=== PATIENT | male | born 1970 | race Caucasian/White ===

== ENCOUNTER 2021-11-23 03:54 | Emergency (ER) | payer MEDICAID, SELFPAY ==
[2021-11-23] VITALS (23 sets, daily range): BP systolic 122–136; BP diastolic 88–98; PULSE 90–113; RESP 18–32; TEMP 36.4; O2SAT 94–99
--- NOTE | ~2021-11-23 | XR_ITS ---
EXAMINATION: XR chest 1V portable DATE: 11/23/2021 04:36 INDICATION: Possible aspiration TECHNIQUE: frontal view of the chest was obtained. COMPARISON: None FINDINGS: Subtle increased opacities at the bilateral lower lung zones with some bronchovascular crowding sugge sting this may be related to atelectasis although aspiration or pneumonia not excludable. No pleural effusion or pneumothorax. Cardiomediastinal silhouette is normal. Multiple old right-sided rib fractu res. IMPRESSION: 1. Subtle bibasilar opacities and favor atelectasis over differential includes aspiration or pneumoni a. Reviewed, dictated and finalized at location A. IMPRESSION: 1. Subtle bibasilar opacities and favor atelectasis over differential includes aspiration or pneumonia.
--- NOTE | 2021-11-23 03:57 | ED.GENADULT ---
HPI - General Adult General Chief complaint: Fall Stated complaint: FALL, LOW O2, ASPIRATION? History of Present Illness HPI narrative: 51-year-old male presenting to the emergency department from the commode from home for evaluation after a fall and suspected aspiration. Patient was found laying on the floor attempting to drink a bottle of tube feeding. Patient is nonverbal at baseline. During transportation patient did have rhonchi, did report he did have shortness of breath and did have an oxygen requirement per EMS. Upon arrival to the emergency department patient is saturating 98% and is in no distress. Related Data Home Medications Medication Instructions Recorded Confirmed Adult Aspirin 81 mg G-tube DAILY 11/23/21 11/23/21 Citroma 1.745 g G-tube PRN PRN Constipation 11/23/21 11/23/21 Fleet Enema 1 applic RECTAL PRN PRN 11/23/21 11/23/21 Constipation Milk of Magnesia 30 ml G-tube PRN PRN Constipation 11/23/21 11/23/21 amlodipine 10 mg G-tube DAILY 11/23/21 11/23/21 atorvastatin 80 mg G-tube HS 11/23/21 11/23/21 baclofen 5 mg G-tube TID 11/23/21 11/23/21 bisacodyl 1 mg RECTAL BID 11/23/21 11/23/21 clopidogrel 75 mg G-tube DAILY 11/23/21 11/23/21 famotidine 20 mg PO BID 11/23/21 11/23/21 haloperidol 1 mg G-tube PRN PRN Constipation 11/23/21 11/23/21 Allergies Allergy/AdvReac Type Severity Reaction Status Date / Time No Known Allergies Allergy Verified 11/23/21 04:11 Review of Systems Review of Systems: Patient is nonverbal ROS unobtainable: Yes unobtainable due to medical condition Exam Narrative: APPEARANCE: Well appearing, no pain, no distress, well-nourished. HEAD: normocephalic, atraumatic. EYES: PERRLA/EOMI, conjunctivae clear. NOSE: Normal no drainage NECK: Supple. No adenopathy, no masses. RESPIRATORY: Airway patent, respirations nonlabored. Rhonchi in lower lobes CARDIOVASCULAR: Regular rate and rhythm without murmurs rubs or gallops. ABDOMINAL: Soft, nontender, nondistended, normal bowel sounds MUSCULOSKELETAL: Moves all extremities. Strength/ROM intact, No edema, No calf tenderness. NEURO: Alert. Right-sided deficit, nonverbal. At his baseline per EMS SKIN: Warm, dry. Normal Color Course Course Emergency Course: Patient's lung sounds have cleared with coughing. Patient is 96 to 98% on room air. Patient acknowledges that he does feel improved. X-ray does show right lower lobe atelectasis versus infiltrate. Vital Signs Vital signs: Vital Signs Temperature 97.5 F L 11/23/21 03:53 Pulse Rate 113 H 11/23/21 03:53 Respiratory Rate 26 H 11/23/21 03:53 Blood Pressure 122/94 H 11/23/21 03:53 Pulse Oximetry 98 11/23/21 03:53 Oxygen Delivery Room Air 11/23/21 03:53 Temperature 97.5 F L 11/23/21 03:53 Pulse Rate 90 11/23/21 05:46 Respiratory Rate 22 H 11/23/21 05:46 Blood Pressure 136/88 11/23/21 05:46 Pulse Oximetry 97 11/23/21 05:46 Oxygen Delivery Room Air 11/23/21 03:53 Medical Decision Making Vital Signs Vital Signs: Vital Signs Temperature 97.5 F L 11/23/21 03:53 Pulse Rate 113 H 11/23/21 03:53 Respiratory Rate 26 H 11/23/21 03:53 Blood Pressure 122/94 H 11/23/21 03:53 Pulse Oximetry 98 11/23/21 03:53 Oxygen Delivery Room Air 11/23/21 03:53 Temperature 97.5 F L 11/23/21 03:53 Pulse Rate 90 11/23/21 05:46 Respiratory Rate 22 H 11/23/21 05:46 Blood Pressure 136/88 11/23/21 05:46 Pulse Oximetry 97 11/23/21 05:46 Oxygen Delivery Room Air 11/23/21 03:53 Lab Data Lab results reviewed: Yes I reviewed the patient's lab results. Result diagrams: 11/23/21 04:10 11/23/21 04:11 Labs: Lab Results 11/23/21 11/23/21 Range/Units 04:10 04:11 WBC 7.2 (4.5-10.0) K/mm3 RBC 4.05 L (4.6-6.20) M/mm3 Hgb 12.4 L (14.0-18.0) g/dL Hct 35.9 L (42.0-52.0) % MCV 88.6 (80-100) fl MCH 30.6 (26-34) pg MCHC 34.5 (32-36) g/dl RDW 16.2 H (11.5-14.5) % Plt Co
--- NOTE | 2021-11-23 04:04 | ECG_ITS ---
Measurements Intervals [place] Rate: 110 P: 58 [place]: 181 QRS: 55 QRSD: 102 T: 73 QT: 383 QTc: 519 Interpretive Statements SINUS TACHYCARDIA EARLY PRECORDIAL R/S TRANSITION NONSPECIFIC ST & T-WAVE ABNORMALITY- DIFFUSE LEADS BASELINE WANDER- I, II, AVR, AVL, AVF ABNORMAL ECG Electronically Signed On 11-23-2021 8:48:55 CDT by Edgar Foy D.O.
[2021-11-23] MEDS: ALBUTEROL SULFATE NEB 2.5 MG/3 ML INH 5 MG INHALATION (04:10)
[2021-11-23] MEDS: SODIUM CHLORIDE 0.9% IV 500 ML 999 ML IV CONT (04:12)
[2021-11-23 04:21] LABS: Basophils Percent Auto 0.1 % (0.2-1.2); Eosinophils Percent Auto 0.3 % (0-4.4); Hematocrit 35.9 % (42.0-52.0); Hemoglobin 12.4 g/dL (14.0-18.0); Immature Granulocyte Absolute 0.02 K/mm3 (0.00-0.031); Immature Granulocyte Percent A 0.3 % (0-0.5); Lymphocytes Absolute Auto 1.25 K/mm3 (0.9-3.2); Lymphocytes Percent Auto 17.3 % (18.3-44.2); Mean Corpuscular HGB Conc 34.5 g/dl (32-36); Mean Corpuscular Hemoglobin 30.6 pg (26-34); Mean Corpuscular Volume 88.6 fl (80-100); Mean Platelet Volume 10.2 fl (7.4-10.4); Monocytes Absolute Auto 0.5 K/mm3 (0.1-0.6); Monocytes Percent Auto 7.1 % (2.6-8.5); Neutrophils Absolute Auto 5.4 K/mm3 (1.3-6.7); Neutrophils Percent Auto 74.9 % (45.5-73.1); Platelet Count Result 252 k/mm3 (150-375); Red Blood Count 4.05 M/mm3 (4.6-6.20); Red Cell Distribution Width 16.2 % (11.5-14.5); White Blood Count 7.2 K/mm3 (4.5-10.0)
--- NOTE | 2021-11-23 04:25 | PCRCNOTE ---
Patient needs to produce a good cough, when asked if he is able, pt stated no.
[2021-11-23 04:28] LABS: Alanine Aminotransferase 31 U/L (6-50); Albumin Level 3.8 g/dL (3.5-5.1); Alkaline Phosphatase 85 U/L (38-126); Anion Gap 6 mmol/L (8-16); Aspartate Amino Transferase 33 U/L (17-59); Bilirubin,Total 0.8 mg/dL (0.2-1.3); Blood Urea Nitrogen 19 mg/dL (9-20); Calcium 9.3 mg/dL (8.4-10.2); Carbon Dioxide 26 mmol/L (22-30); Chloride 104 mmol/L (98-107); Estimated CRCL calculation 166 ml/min; Estimated Glomerular Filt Rate > 60; Glucose 181 mg/dL (65-110); Potassium 3.7 mmol/L (3.4-5.0); Sodium 136 mmol/L (137-145)
--- NOTE | 2021-11-23 07:16 | PC.NURSE ---
BSSR to Cat RN
== END 2021-11-23 07:30 | disposition home or self-care (01) ==
PROVIDERS: Emergency Provider Emergency Medicine; PCP Internal Medicine
DX: T17.928A Food in respiratory tract, part unspecified causing other injury, initial encounter (principal); I69.328 Other speech and language deficits following cerebral infarction; R00.0 Tachycardia, unspecified; R94.31 Abnormal electrocardiogram [ECG] [EKG]; W18.11XA Fall from or off toilet without subsequent striking against object, initial encounter; R91.8 Other nonspecific abnormal finding of lung field
CPT/HCPCS: 36415; 71045; 80053; 85025; 93005; 94640; 96360; 99283; J7040

== ENCOUNTER 2021-11-24 15:43 | Emergency (ER) | payer MEDICAID, SELFPAY ==
--- NOTE | ~2021-11-24 | XR_ITS ---
EXAM: XR G tube evaluation w imaging DATE: 11/24/2021 17:47 HISTORY: replaced g tube . COMPARISON: None available. FINDINGS: Contrast instilled via the G-tube fills the stomach and proximal duodenum. No extravasation . Bibasilar atelectasis/consolidation. Normal bowel gas pattern. No organomegaly. No abnormal abdomin al calcification. Regional bones and soft tissues normal for age. IMPRESSION: G-tube, in good position. Reviewed, dictated and finalized at location K. IMPRESSION: G-tube, in good position.
[2021-11-24 15:44] VITALS: BP 130/91; PULSE 98; RESP 18; TEMP 36.8; O2SAT 100
--- NOTE | 2021-11-24 17:33 | ED.GENADULT ---
HPI - General Adult General Chief complaint: Unspecified Stated complaint: TEAR IN GTUBE NEEDS REPLACED Time Seen by Provider: 11/24/21 16:22 Source: EMS and RN notes reviewed Mode of arrival: EMS Limitations: other (nonverbal from stroke) History of Present Illness HPI narrative: This is a 51 year old male nonverbal with history of CVA with right hemiplegia who presents from [facility] in [place] for g tube replacement. EMS states [facility] reports crack in patient's g tube so he needs replacement. Patient is unable to given additional history. Related Data Home Medications Medication Instructions Recorded Confirmed Adult Aspirin 81 mg G-tube DAILY 11/23/21 11/23/21 Citroma 1.745 g G-tube PRN PRN Constipation 11/23/21 11/23/21 Fleet Enema 1 applic RECTAL PRN PRN 11/23/21 11/23/21 Constipation Milk of Magnesia 30 ml G-tube PRN PRN Constipation 11/23/21 11/23/21 amlodipine 10 mg G-tube DAILY 11/23/21 11/23/21 atorvastatin 80 mg G-tube HS 11/23/21 11/23/21 baclofen 5 mg G-tube TID 11/23/21 11/23/21 bisacodyl 1 mg RECTAL BID 11/23/21 11/23/21 clopidogrel 75 mg G-tube DAILY 11/23/21 11/23/21 famotidine 20 mg PO BID 11/23/21 11/23/21 haloperidol 1 mg G-tube PRN PRN Constipation 11/23/21 11/23/21 Allergies Allergy/AdvReac Type Severity Reaction Status Date / Time No Known Allergies Allergy Verified 11/24/21 15:51 Review of Systems Review of Systems: ROS unobtainable: Yes unobtainable due to medical condition (nonverbal) PMFSH Past Medical History Medical History (Updated 11/24/21 @ 18:31 by Leena Crow MD) Aphasia CVA (cerebral vascular accident) History of gastrostomy tube placement Hyperlipidemia Right hemiplegia Social History Social History (Updated 11/24/21 @ 17:38 by Leena Crow MD) Smoking status: Unknown if ever smoked Exam Const: General: comfortable and no acute distress Nutritional Appearance: well nourished Orientation/consciousness: Other orientation findings (paient alert , aphasia, will shake head yes and know) Limitations: physical limitations HENMT: Head: normocephalic and atraumatic Mouth: Yes lip normal, Yes oropharynx normal and Yes moist mucous membranes Throat: posterior oropharynx normal Chest: Chest palpation & inspection: normal inspection of the chest Resp: Effort & Inspection: normal respiratory effort Auscultation: clear to auscultation bilaterally Cardio: Rate: regular rate Rhythm: regular rhythm GI: GI Palp: Yes Soft to palpation and No Tenderness to palpation present (GI) Auscultation: normal bowel sounds and other (gastrostomy tube in place, there is granulation tissue at site, tract,) Other: no surrounding erythema Skin: General skin exam: normal color Neuro: Speech: aphasia Motor exam (neuro): Abnormal motor strength present (right side hemiplegia) Psych: Appearance: grossly normal Course Reevaluation(s) Reevaluation #1: On arrival , g tube was flushed. There is small area to end of tube that is leaking. G tube was replaced. G tube in place according to imaging. Patient to be sent back to facility Date: 11/24/21 Time: 18:29 Vital Signs Vital signs: Vital Signs Temperature 98.3 F 11/24/21 15:44 Pulse Rate 98 11/24/21 15:44 Respiratory Rate 18 11/24/21 15:44 Blood Pressure 130/91 H 11/24/21 15:44 Pulse Oximetry 100 11/24/21 15:44 Oxygen Delivery Room Air 11/24/21 15:44 Temperature 98.3 F 11/24/21 15:44 Pulse Rate 98 11/24/21 15:44 Respiratory Rate 18 11/24/21 15:44 Blood Pressure 130/91 H 11/24/21 15:44 Pulse Oximetry 100 11/24/21 15:44 Oxygen Delivery Room Air 11/24/21 15:44 Procedures Feeding Tube Replacement Feeding Tube #1: Feeding Tube Placement Date: 11/17/21 Feeding Tube Placement Time: 17:41 Type of Tube: gastrostomy Insertion Site Prior to Procedure: clean Tube Used for Reinsertion: other (new g tube) English Tube
[2021-11-24 21:53] VITALS: BP 140/90; PULSE 86; RESP 18; O2SAT 98
== END 2021-11-24 21:53 ==
PROVIDERS: Emergency Provider General Practice; PCP Internal Medicine
DX: K94.23 Gastrostomy malfunction (principal); I69.951 Hemiplegia and hemiparesis following unspecified cerebrovascular disease affecting right dominant side; I69.920 Aphasia following unspecified cerebrovascular disease; E78.5 Hyperlipidemia, unspecified; Z79.82 Long term (current) use of aspirin
CPT/HCPCS: 49465; 99284

== ENCOUNTER 2021-12-11 19:10 | Emergency (ER) | payer MEDICAID, SELFPAY ==
--- NOTE | ~2021-12-11 | CT_ITS ---
EXAMINATION: CT facial & cervical spine wo DATE: 12/11/2021 19:46 INDICATION: fall with head and facial injury TECHNIQUE: Computed tomography (CT) of the maxillofacial region and cervical spine was performed with out intravenous contrast. Automated exposure control and iterative reconstruction technique were empl oyed. The dose-length product was 521.94 mGy-cm. COMPARISON: None FINDINGS: CERVICAL: Vertebral Body Alignment: Intact. Craniocervical and atlantoaxial alignment: Moderate degenerative change. Alignment intact. Osseous structures/fracture: No evidence of a lytic or blastic process in the visualized spine. No e vidence of acute fracture. Cervical soft tissues: The paraspinal soft tissues planes are maintained. Degenerative changes: Multilevel severe degenerative disc disease. Multilevel severe bilateral neural foraminal narrowing. No severe central canal narrowing. FACE: Soft Tissues: Mild frontal soft tissue swelling. Facial bones: No acute fracture. No lytic or blastic process. Eyes: The globes are intact. The soft tissue planes of the orbits are maintained. Paranasal Sinuses: Mucosal thickening in the bilateral maxillary and ethmoid sinuses. Foreign Bodies: No radiopaque foreign bodies. Other Findings: None. IMPRESSION: No acute fracture or traumatic malalignment in the cervical spine. No acute facial bone fracture. Reviewed, dictated and finalized at location K. IMPRESSION: No acute fracture or traumatic malalignment in the cervical spine. No acute fac ial bone fracture.
--- NOTE | ~2021-12-11 | CT_ITS ---
EXAMINATION: CT brain wo con DATE: 12/11/2021 19:45 INDICATION: fall with head and facial injury . TECHNIQUE: Computed tomography (CT) of the head was performed without intravenous contrast. The mA wa s adjusted according to patient size. Iterative reconstruction technique was employed. The dose-lengt h product was 605.33 mGy-cm. COMPARISON: None FINDINGS: Motion limited study. Mucosal thickening in the bilateral maxillary and ethmoid sinuses. Remaining aerated spaces are clear . No acute intracranial hemorrhage or extra-axial fluid collection. No hydrocephalus, mass, or herniation. No acute ischemic infarct. Unremarkable dural venous sinus attenuation. No acute osseous abnormality. Large areas of encephalomalacia in the left MCA territory. Multifocal old infarcts present in the rig ht SOFYA territory, right yuan radiata, right periventricular white matter, right thalamus, and right cerebellar hemisphere. IMPRESSION: Motion limited examination. Within that constraint, no definite acute intracranial process. Reviewed, dictated and finalized at location K. IMPRESSION: Motion limited examination. Within that constraint, no definite acute intracran ial process.
[2021-12-11 19:11] VITALS: BP 128/97; PULSE 92; RESP 16; O2SAT 99
--- NOTE | 2021-12-11 19:23 | ED.GENADULT ---
HPI - General Adult General Chief complaint: Fall Stated complaint: COVID+/GLF History of Present Illness HPI narrative: 51-year-old male presenting to the emergency department for evaluation after having a unwitnessed [facility] a local [facility]. [facility] for previous [facility]A with right-sided deficit. Patient is nonverbal at baseline. half-way found the patient with a bloody nose. Patient does confirm he had a ground-level fall and did strike his face. Patient denies any other pain or injury. Related Data Home Medications Medication Instructions Recorded Confirmed Adult Aspirin 81 mg G-tube DAILY 11/23/21 11/23/21 Citroma 1.745 g G-tube PRN PRN Constipation 11/23/21 11/23/21 Fleet Enema 1 applic RECTAL PRN PRN 11/23/21 11/23/21 Constipation Milk of Magnesia 30 ml G-tube PRN PRN Constipation 11/23/21 11/23/21 amlodipine 10 mg G-tube DAILY 11/23/21 11/23/21 atorvastatin 80 mg G-tube HS 11/23/21 11/23/21 baclofen 5 mg G-tube TID 11/23/21 11/23/21 bisacodyl 1 mg RECTAL BID 11/23/21 11/23/21 clopidogrel 75 mg G-tube DAILY 11/23/21 11/23/21 famotidine 20 mg PO BID 11/23/21 11/23/21 haloperidol 1 mg G-tube PRN PRN Constipation 11/23/21 11/23/21 Allergies Allergy/AdvReac Type Severity Reaction Status Date / Time No Known Allergies Allergy Verified 11/24/21 15:51 Review of Systems Review of Systems: ROS unobtainable: Yes unobtainable due to medical condition PMFSH Past Medical History Medical History (Updated 12/12/21 @ 00:00 by Background Daemon) Aphasia CVA (cerebral vascular accident) History of gastrostomy tube placement Hyperlipidemia Right hemiplegia Social History Social History (Updated 11/24/21 @ 17:38 by Leena Crow MD) Smoking status: Unknown if ever smoked Exam Narrative: APPEARANCE: Well appearing, no pain, no distress, well-nourished. HEAD: normocephalic, atraumatic. EYES: PERRLA/EOMI, conjunctivae clear. NOSE: Blood in the right naris EARS:TMS clear with good light reflex. THROAT: Pharynx clear, no exudate. NECK: Supple. No adenopathy, no masses. RESPIRATORY: Airway patent, respirations nonlabored. Clear to auscultation bilaterally, no rales, rhonchi, wheezing. CARDIOVASCULAR: Regular rate and rhythm without murmurs rubs or gallops. ABDOMINAL: Soft, nontender, nondistended, normal bowel sounds MUSCULOSKELETAL: Moves all extremities. Strength/ROM intact, No edema, No calf tenderness. NEURO: Alert. Cranial nerves II through XII intact. Right-sided deficit at his normal baseline, no acute change SKIN: Warm, dry. Normal Color Course Vital Signs Vital signs: Vital Signs Pulse Rate 92 12/11/21 19:11 Respiratory Rate 16 12/11/21 19:11 Blood Pressure 128/97 H 12/11/21 19:11 Pulse Oximetry 99 12/11/21 19:11 Oxygen Delivery Room Air 12/11/21 19:11 Pulse Rate 72 12/11/21 22:50 Respiratory Rate 18 12/11/21 22:50 Blood Pressure 130/96 H 12/11/21 22:50 Pulse Oximetry 97 12/11/21 22:50 Oxygen Delivery Room Air 12/11/21 19:11 Medical Decision Making Vital Signs Vital Signs: Vital Signs Pulse Rate 92 12/11/21 19:11 Respiratory Rate 16 12/11/21 19:11 Blood Pressure 128/97 H 12/11/21 19:11 Pulse Oximetry 99 12/11/21 19:11 Oxygen Delivery Room Air 12/11/21 19:11 Pulse Rate 72 12/11/21 22:50 Respiratory Rate 18 12/11/21 22:50 Blood Pressure 130/96 H 12/11/21 22:50 Pulse Oximetry 97 12/11/21 22:50 Oxygen Delivery Room Air 12/11/21 19:11 Imaging Data Radiologist's impression: Impressions Head CT 12/11/21 19:53 IMPRESSION: Motion limited examination. Within that constraint, no definite acute intracranial process. Head/Cervical Spine/Facial Bones CT 12/11/21 19:59 IMPRESSION: No acute fracture or traumatic malalignment in the cervical spine. No acute facial bone fracture. Discharge Plan Discharge Clinical Impression:
[2021-12-11 19:27] VITALS: O2SAT 94
--- NOTE | 2021-12-11 19:30 | PC.NURSE ---
Patient off unit to CT.
[2021-12-11 20:17] VITALS: BP 94/75
--- NOTE | 2021-12-11 20:24 | PC.NURSE ---
Mariam requested for transport back to [facility] in [place] - ETA 2 hours.
[2021-12-11 22:50] VITALS: BP 130/96; PULSE 72; RESP 18; O2SAT 97
--- NOTE | 2021-12-11 22:50 | PC.NURSE ---
Patient report provided to [facility] medics at time of transport. All questions answered. Patient transferred to stretcher and secured. DC VSS. Patient report has already been called to [facility].
== END 2021-12-11 22:50 ==
PROVIDERS: Emergency Provider Emergency Medicine; PCP Internal Medicine
DX: S09.92XA Unspecified injury of nose, initial encounter (principal); I69.951 Hemiplegia and hemiparesis following unspecified cerebrovascular disease affecting right dominant side; I69.920 Aphasia following unspecified cerebrovascular disease; E78.5 Hyperlipidemia, unspecified; Z93.1 Gastrostomy status; Z79.82 Long term (current) use of aspirin; W18.30XA Fall on same level, unspecified, initial encounter
CPT/HCPCS: 70450; 70486; 72125; 99284

== ENCOUNTER 2021-12-28 10:44 | Outpatient (CLI) | payer MEDICAID, SELFPAY ==
--- NOTE | ~2021-12-28 | XR_ITS ---
EXAMINATION: XR barium swallow modified DATE: 12/28/2021 11:54 INDICATION: Dysphasia. TECHNIQUE: The patient was given barium-containing material of multiple consistencies to swallow by pam cifuentes speech pathologist while I performed fluoroscopy. Fluoroscopy exposure time was 2.2 minutes. The n umber of fluoroscopy images saved to the PACS was 1. Dose-area product was 1.612 Gy-cm^2. FINDINGS: There was reduced lingual movement with uncontrolled bolus with premature spill and tongue pumping. T here was reduced laryngeal elevation, reduced laryngeal adduction, and delayed swallow. Laryngeal pen etration and aspiration were noted. IMPRESSION: 1. Laryngeal penetration and aspiration. 2. Please refer to the speech therapy report for recommendations. Reviewed, dictated and finalized at location A.
--- NOTE | 2021-12-31 09:17 | REHSTMBS ---
Modified Barium Swallow Evaluation Feeding Type Recommended Non-Oral ST Clinical Summary This 51 year old patient was seated for a lateral view and presented with 5cc of thin liquid barium & moderately thick liquid via a spoon, pudding consistency barium via a spoon, small amount (<3-4 cc) crumbled cracker coated with barium pudding via spoon. During the oral stage, reduced lingual control and shaping was exhibited as evidenced by premature spill posterior, uncontrolled bolus, and lingual pumping. No leakage or pocketing was exhibited; however, residual on tongue was noted. The pt was able to clear residual but required occasional verbal cueing. During the pharyngeal stage, pooling was exhibited at the level of the pyriform sinuses at times for up to 5-6 seconds indicative of a delayed swallow reflex. However, prompt swallows were also exhibited. Upon trigger of the pharyngeal swallow, reduced laryngeal elevation & reduced laryngeal adduction was exhibited as evidenced by laryngeal penetration during the swallow & aspiration during the swallow . Pt responded to the aspiration with a weak cough which did not clear the aspirate. Mildly reduced tongue base retraction was also exhibited as evidenced by mild vallecular residue. Sluggish epiglottic inversion/movement was exhibited as well. Aspiration occurred inconsistently during testing with all consistencies. Head flexion/chin tuck and cough reflex did not improve swallow ability or clear aspirate. Impressions: severe dysphagia Recommendations: ST to focus on laryngeal elevation and closure, tongue base retraction, delayed swallow reflex and oral stage dysfunction. Thank you for this referral.
== END 2021-12-28 10:45 | disposition home or self-care (01) ==
PROVIDERS: PCP Internal Medicine
DX: R13.10 Dysphagia, unspecified (principal)
CPT/HCPCS: 92611

== ENCOUNTER 2022-02-07 18:46 | Inpatient (IN) | payer OTHER, SELFPAY ==
[2022-02-07] VITALS (17 sets, daily range): BP systolic 96–108; BP diastolic 63–76; PULSE 83–151; RESP 20–35; TEMP 36.2–39.2; O2SAT 95–100; BMI 21.7
--- NOTE | ~2022-02-07 | XR_ITS ---
XR chest 1V portable 02/07/2022 19:20 Indication: Shortness of breath. Cough. Procedure: AP portable chest Comparison: 11/23/2021 Findings: There are bilateral interstitial infiltrates of the mid and lower lungs. There is a skinfol d overlying the right thorax. No pneumothorax or significant pleural effusion. Heart size normal. The re is atherosclerosis of the aorta. Impression: 1: Bilateral interstitial infiltrates, most confluent in the left lung base. This may represent edema or pneumonia. Reviewed, dictated and finalized at location A. Impression: 1: Bilateral interstitial infiltrates, most confluent in the left lung base. Th is may represent edema or pneumonia.
--- NOTE | 2022-02-07 18:57 | ECG_ITS ---
Measurements Intervals [place] Rate: 150 P: [place]: 0 QRS: 26 QRSD: 92 T: 59 QT: 325 QTc: 513 Interpretive Statements ATRIAL FLUTTER/TACHYCARDIA WITH RAPID VENTRICULAR RESPONSE NONSPECIFIC ST & T-WAVE ABNORMALITY CRITICAL TEST RESULT COMPARED TO ECG 11/23/2021 04:05:51 ATRIAL FLUTTER NOW PRESENT T-WAVE ABNORMALITY NOW PRESENT Electronically Signed On 02-08-2022 13:36:32 CDT by Lambert Downey M.D.
--- NOTE | 2022-02-07 19:05 | ED.GENADULT ---
HPI - General Adult General Chief complaint: Shortness of Breath/Dyspnea Stated complaint: RESP DISTRESS Time Seen by Provider: 02/07/22 18:51 History of Present Illness HPI narrative: 51-year-old male presented to emergency department for evaluation of suspected aspiration pneumonia. Patient is G-tube dependent and long term staff reported that the patient drank his contents from his G-tube and then aspirated. Patient presents to the ED tachycardic and febrile. Patient does have a prior history of a stroke and does have residual right-sided weakness. Related Data Home Medications Medication Instructions Recorded Confirmed Adult Aspirin 81 mg G-tube DAILY 11/23/21 02/07/22 Citroma 1.745 g G-tube PRN PRN Constipation 11/23/21 02/07/22 Fleet Enema 1 applic RECTAL PRN PRN 11/23/21 02/07/22 Constipation Milk of Magnesia 30 ml G-tube PRN PRN Constipation 11/23/21 02/07/22 amlodipine 10 mg G-tube DAILY 11/23/21 02/07/22 atorvastatin 80 mg G-tube HS 11/23/21 02/07/22 baclofen 5 mg G-tube TID 11/23/21 02/07/22 bisacodyl 1 mg RECTAL BID PRN Constipation 11/23/21 11/23/21 clopidogrel 75 mg G-tube DAILY 11/23/21 02/07/22 famotidine 20 mg PO BID 11/23/21 02/07/22 cholecalciferol (vitamin D3) 50 50 mcg PO DAILY 02/07/22 02/07/22 mcg (2,000 unit) tablet (Vitamin D3) Allergies Allergy/AdvReac Type Severity Reaction Status Date / Time No Known Allergies Allergy Verified 11/24/21 15:51 Review of Systems Review of Systems: ROS unobtainable: Yes unobtainable due to mental status PMFSH Past Medical History Medical History (Updated 02/08/22 @ 01:31 by Gregor Pelayo MD) Aphasia CVA (cerebral vascular accident) History of gastrostomy tube placement Hyperlipidemia Right hemiplegia Social History Social History (Updated 11/24/21 @ 17:38 by Leena Crow MD) Smoking status: Smoker, status unknown Alcohol intake: unknown Substance use: unknown Spiritual care concerns: No Exam Narrative: APPEARANCE: Well appearing, no pain, no distress, well-nourished. HEAD: normocephalic, atraumatic. EYES: PERRLA/EOMI, conjunctivae clear. NOSE: Normal no drainage THROAT: Pharynx clear, no exudate. NECK: Supple. No adenopathy, no masses. RESPIRATORY: Airway patent, respirations nonlabored. Congested lung sounds on left CARDIOVASCULAR: Regular rate and rhythm without murmurs rubs or gallops. ABDOMINAL: Soft, nontender, nondistended, normal bowel sounds MUSCULOSKELETAL: Moves all extremities. Strength/ROM intact, No edema, No calf tenderness. NEURO: Alert. Cranial nerves II through XII intact. Grossly intact SKIN: Warm, dry. Normal Color Course Course Emergency Course: Patient was febrile on arrival and his fever was treated with Tylenol. Patient was also treated with 2 L of normal saline. Patient was started on Unasyn and Vanco for suspected aspiration pneumonia. Case was discussed with the hospitalist and patient was accepted for admission. Vital Signs Vital signs: Vital Signs Temperature 102.5 F H 02/07/22 18:49 Pulse Rate 151 H 02/07/22 18:49 Respiratory Rate 35 H 02/07/22 18:49 Pulse Oximetry 97 02/07/22 18:49 Oxygen Delivery Nasal Cannula 02/07/22 18:49 Oxygen Flow Rate 6 02/07/22 18:49 Temperature 97.1 F L 02/07/22 22:55 Pulse Rate 83 02/07/22 22:55 Respiratory Rate 20 02/07/22 22:55 Blood Pressure 96/63 L 02/07/22 22:55 Pulse Oximetry 100 02/07/22 22:55 Oxygen Delivery Nasal Cannula 02/07/22 19:28 Oxygen Flow Rate 2 02/07/22 19:28 Medical Decision Making Vital Signs Vital Signs: Vital Signs Temperature 102.5 F H 02/07/22 18:49 Pulse Rate 151 H 02/07/22 18:49 Respiratory Rate 35 H 02/07/22 18:49 Pulse Oximetry 97 02/07/22 18:49 Oxygen Delivery Nasal Cannula 02/07/22 18:49 Oxygen Flow Rate 6 02/07/22 18:49 Temperature 97.1 F L 02/07/22 22:55 Pulse Rate 83 02/07/22 22:55 Respiratory Rate 20 02/07/22 22:55 Blood Pr
[2022-02-07] MEDS: SODIUM CHLORIDE 0.9% IV 1,000 ML 999 ML IV CONT ×2 (19:15→20:44)
--- NOTE | 2022-02-07 19:44 | PC.NURSE ---
Correction to note previously enetered pt is on 6 liters O2 via nasal cannula
[2022-02-07 20:13] LABS: Basophils Percent Auto 0.2 % (0.2-1.2); Hematocrit 34.4 % (42.0-52.0); Hemoglobin 11.9 g/dL (14.0-18.0); Immature Granulocyte Absolute 0.02 K/mm3 (0.00-0.031); Immature Granulocyte Percent A 0.3 % (0-0.5); Lymphocytes Absolute Auto 0.49 K/mm3 (0.9-3.2); Lymphocytes Percent Auto 7.6 % (18.3-44.2); Mean Corpuscular HGB Conc 34.6 g/dl (32-36); Mean Corpuscular Hemoglobin 32.2 pg (26-34); Mean Platelet Volume 10.9 fl (7.4-10.4); Monocytes Absolute Auto 0.5 K/mm3 (0.1-0.6); Monocytes Percent Auto 7.6 % (2.6-8.5); Neutrophils Absolute Auto 5.5 K/mm3 (1.3-6.7); Neutrophils Percent Auto 84.3 % (45.5-73.1); Platelet Count Result 174 k/mm3 (150-375); Red Cell Distribution Width 12.9 % (11.5-14.5); White Blood Count 6.5 K/mm3 (4.5-10.0)
[2022-02-07 20:23] LABS: Appearance Urine Clear (Clear); Bilirubin Urine Negative (Negative); Blood Urine Negative (Negative); Color Urine Amber (Yellow); Glucose Urine UA Negative (Negative); Ketones Urine Trace mg/dL (Negative); Leukocyte Esterase Ur Negative LEU/UL (Negative); Nitrate Urine Negative (Negative); Protein Urine 1+ mg/dL (Negative); Specific Grav Ur 1.015 (1.001-1.035); pH Urine 7.5 (5.0-9.0)
[2022-02-07 20:24] LABS: Lactic Acid Reflex 1.8 mmol/L (0.7-2.0)
[2022-02-07 20:25] LABS: Alanine Aminotransferase 29 U/L (6-50); Albumin Level 3.2 g/dL (3.5-5.1); Alkaline Phosphatase 75 U/L (38-126); Anion Gap 8 mmol/L (8-16); Aspartate Amino Transferase 27 U/L (17-59); Bilirubin,Total 0.3 mg/dL (0.2-1.3); Blood Urea Nitrogen 18 mg/dL (9-20); CRP 0.7 mg/dL (<1.0); Calcium 8.1 mg/dL (8.4-10.2); Carbon Dioxide 25 mmol/L (22-30); Chloride 100 mmol/L (98-107); Estimated CRCL calculation 184 ml/min; Estimated Glomerular Filt Rate > 60; Glucose 103 mg/dL (65-110); INR 1.1; Potassium 3.6 mmol/L (3.4-5.0); Prothrombin Time 13.5 Seconds (11.1-14.7); Sodium 133 mmol/L (137-145)
[2022-02-07 20:26] LABS: Partial Thromboplastin Time 28.6 SECONDS (22.3-36.8)
[2022-02-07 20:30] LABS: Mucus Urine Rare /lpf; RBC Urine 0-2 /hpf (0-2); WBC Urine 0-3 /hpf
[2022-02-07 20:33] LABS: Add Urine Microscopic? YES
--- NOTE | 2022-02-07 20:38 | PC.NURSE ---
fall risk sign, bed alarm, clip, and yellow socks in place for fall risk
--- NOTE | 2022-02-07 21:14 | PM.IMHP ---
H&P: HPI History of Present Illness Date/Time: 02/07/22 21:14 Chief Complaint: shortness of breath Narrative: This is a 51-year-old male he is a residential resident patient had a stroke with aphasia and hemiparesis, dysphagia, status post G-tube placement, was brought to the emergency room for evaluation due to shortness of breath most of the history has been obtained from emergency room records, patient is unable to give any history, but it was documented patient with respiratory distress, tachypneic. according to records patient was drinking in his feeding tube formula. In emergency room patient was noted to be working hard to breathe as well a chest x-ray was significant for bilateral infiltrates with suspicion for aspiration pneumonia. A chemistry panel showed a sodium of 133. Patient is admitted for further evaluation, management and treatment. Review of Systems Review of Systems: ROS unobtainable: Yes unobtainable due to medical condition ( aphasia) PMFSH Past Medical History Medical History (Updated 02/08/22 @ 01:48 by Caitlin Gardner MD) Aphasia CVA (cerebral vascular accident) History of gastrostomy tube placement Hyperlipidemia Right hemiplegia Social History Social History (Updated 11/24/21 @ 17:38 by Leena Crow MD) Smoking status: Smoker, status unknown Alcohol intake: unknown Substance use: unknown Spiritual care concerns: No Meds Home Medications and Allergies Home Medications Medication Instructions Recorded Confirmed Type Adult Aspirin 81 mg G-tube DAILY 11/23/21 02/07/22 History Citroma 1.745 g G-tube PRN PRN Constipation 11/23/21 02/07/22 History Fleet Enema 1 applic RECTAL PRN PRN 11/23/21 02/07/22 History Constipation Milk of Magnesia 30 ml G-tube PRN PRN Constipation 11/23/21 02/07/22 History amlodipine 10 mg G-tube DAILY 11/23/21 02/07/22 History atorvastatin 80 mg G-tube HS 11/23/21 02/07/22 History baclofen 5 mg G-tube TID 11/23/21 02/07/22 History bisacodyl 1 mg RECTAL BID PRN Constipation 11/23/21 11/23/21 History clopidogrel 75 mg G-tube DAILY 11/23/21 02/07/22 History famotidine 20 mg PO BID 11/23/21 02/07/22 History cholecalciferol (vitamin D3) 50 50 mcg PO DAILY 02/07/22 02/07/22 History mcg (2,000 unit) tablet (Vitamin D3) Allergies Allergy/AdvReac Type Severity Reaction Status Date / Time No Known Allergies Allergy Verified 11/24/21 15:51 Vital Signs Vital Signs - 24 hr 02/07/22 18:49 02/07/22 18:59 02/07/22 19:28 Temperature 102.5 F H Pulse Rate 151 H 151 H Respiratory Rate 35 H Blood Pressure Pulse Oximetry 97 97 Oxygen Delivery Nasal Cannula Nasal Cannula Oxygen Flow Rate 6 2 02/07/22 19:30 02/07/22 19:01 02/07/22 19:01 Temperature Pulse Rate 133 H 139 H 151 H Respiratory Rate 28 H 30 H Blood Pressure 108/75 Pulse Oximetry Oxygen Delivery Oxygen Flow Rate 02/07/22 19:15 02/07/22 19:16 02/07/22 19:30 Temperature Pulse Rate 142 H 142 H 131 H Respiratory Rate 30 H 30 H 28 H Blood Pressure 107/76 98/67 L Pulse Oximetry 98 99 97 Oxygen Delivery Oxygen Flow Rate 02/07/22 19:39 02/07/22 19:49 02/07/22 20:01 Temperature Pulse Rate 126 H 129 H 123 H Respiratory Rate 31 H 26 H 22 H Blood Pressure Pulse Oximetry 97 97 98 Oxygen Delivery Oxygen Flow Rate Exam Narrative: patient is laying in a stretcher Const: General: comfortable, no acute distress, well developed, alert, awake, ill appearing acutely and chronically and average body habitus Nutritional Appearance: average body habitus Orientation/consciousness: oriented to person ( patient is aphasic however responds when his name is called) Limitations: physical limitations ( hemiparesis, aphasia.) HENMT: Head: normal to inspection, normocephalic and atraumatic Ears: hearing grossly normal bilaterally Face/Nose/Sinus: normal facial exam Face and sinus: normal facial exam Eyes: General: ap
[2022-02-07] MEDS: AMPICILLIN SULB 3 GM/NS 100 ML 3 GM/100 ML VIAL IVPB (22:06)
[2022-02-07 22:41] LABS: SARS-CoV-2 RNA PCR Negative
[2022-02-07] MEDS: SODIUM CHLORIDE 0.9% IV 1,000 ML 125 ML IV CONT (22:54)
--- NOTE | 2022-02-07 23:15 | ADMGEN ---
This patient, Mckinley Kennedy, was admitted to Medical Room 245-. Patient/family oriented to hospital policies and general routines including ID bracelet, bed and alarms, visiting hours, pain management, procedures, bathroom and other care routines, personal items, smoking policy, room service/diet, and visiting hours. Information on how to activate the Rapid Response Team has been discussed. Patient/Family are encouraged to report perceived risks to care and to ask questions if they do not understand what they are told or what they should do.
[2022-02-08 03:02] VITALS: O2SAT 96
[2022-02-08 03:16] VITALS: BP 91/61; PULSE 69; RESP 20; TEMP 36.2; O2SAT 100
[2022-02-08] MEDS: SODIUM CHLORIDE 0.9% IV 1,000 ML 125 ML IV CONT ×3 (04:55→20:24)
[2022-02-08 08:00] VITALS: O2SAT 98
[2022-02-08] MEDS: AMPICILLIN SULB 1.5 GM/NS 50ML 1.5 GM/50 ML VIAL IVPB ×3 (09:15→17:26)
[2022-02-08] MEDS: amLODIPine BESYLATE 5 MG TABLET 10 MG FEED TUBE (09:17)
[2022-02-08] MEDS: BACLOFEN 5 MG TABLET FEED TUBE ×3 (09:17→17:26)
[2022-02-08] MEDS: CLOPIDOGREL BISULFATE 75 MG TABLET FEED TUBE (09:17)
[2022-02-08] MEDS: ASPIRIN 81 MG CHEWABLE TABLET FEED TUBE (09:17)
[2022-02-08] MEDS: FAMOTIDINE 20 MG TABLET PO ×2 (09:17→17:26)
[2022-02-08] MEDS: CHOLECALCIFEROL 1,000 UNITS TABLET 2000 UNITS PO (09:17)
--- NOTE | 2022-02-08 10:15 | PM.IMPN ---
Progress Note: A&P Assessment and Plan (1) Aspiration pneumonia: Code(s): J69.0 - Pneumonitis due to inhalation of food and vomit Status: Acute Assessment and Plan: admit to regular medical floor chest x-ray reviewed continue Unasyn cultures in progress supportive care (2) CVA (cerebral vascular accident): Code(s): I63.9 - Cerebral infarction, unspecified Status: Acute Assessment and Plan: supportive care patient is hemiparetic continue Lipitor continue aspirin continue Plavix (3) Aphasia: Code(s): R47.01 - Aphasia Status: Acute Assessment and Plan: supportive care (4) Right hemiplegia: Code(s): G81.91 - Hemiplegia, unspecified affecting right dominant side Status: Acute Assessment and Plan: fall precautions round the clock turning schedule (5) Gastrostomy tube in place: Code(s): Z93.1 - Gastrostomy status Status: Acute Assessment and Plan: local care Subjective Date/time seen: 02/08/22 10:15 no new complaints Exam Narrative: patient is laying in a stretcher Const: General: comfortable, no acute distress, well developed, alert, awake, ill appearing acutely and chronically and average body habitus Nutritional Appearance: average body habitus Orientation/consciousness: oriented to person Limitations: physical limitations ( hemiparesis, aphasia.) HENMT: Head: normal to inspection, normocephalic and atraumatic Ears: hearing grossly normal bilaterally Face/Nose/Sinus: normal facial exam Face and sinus: normal facial exam Eyes: General: appearance normal, both eyes and all related structures Pupils: Equal, round and reactive pupils present EOM: EOMs intact bilaterally Neck: Neck: full ROM, no lymphadenopathy and no JVD Thyroid: thyroid normal Lymphatic: no lymphadenopathy noted Resp: Effort & Inspection: normal respiratory effort and able to speak in complete sentences Auscultation: clear to auscultation bilaterally Cardio: Jugular venous distension: no JVD Rate: regular rate Rhythm: regular rhythm Heart sounds: S1 normal heart sound present and S2 normal heart sound present GI: Inspection: other ( G-tube in place) : General: Yes deferred Skin: Rashes: no rashes Wounds: no wounds Other: G-tube in place Neuro: General: oriented to person, CN's II-XI intact bilaterally, Unable to assess gait and other ( patient is hemiparetic) Cranial nerves: Yes CN's II-XII intact bilaterally and Yes Equal, round and reactive pupils present Cognition (Neuro): abnormal cognition ( some degree of obtundation and lethargy) Speech: normal speech Gait exam (Neuro): Unable to assess gait and Other gait observations present ( hemiparetic) Motor exam (neuro): 5/5 motor strength present throughout Extrem: General: normal to inspection, full ROM, no joint enlargement and no pedal edema Objective Data Vital Signs Vital Signs: Vital Signs - 24 hr 02/07/22 18:49 02/07/22 18:59 02/07/22 19:28 Temperature 102.5 F H Pulse Rate 151 H 151 H Respiratory Rate 35 H Blood Pressure Pulse Oximetry 97 97 Oxygen Delivery Nasal Cannula Nasal Cannula Oxygen Flow Rate 6 2 02/07/22 19:30 02/07/22 19:01 02/07/22 19:01 Temperature Pulse Rate 133 H 139 H 151 H Respiratory Rate 28 H 30 H Blood Pressure 108/75 Pulse Oximetry Oxygen Delivery Oxygen Flow Rate 02/07/22 19:15 02/07/22 19:16 02/07/22 19:30 Temperature Pulse Rate 142 H 142 H 131 H Respiratory Rate 30 H 30 H 28 H Blood Pressure 107/76 98/67 L Pulse Oximetry 98 99 97 Oxygen Delivery Oxygen Flow Rate 02/07/22 19:39 02/07/22 19:49 02/07/22 20:01 Temperature Pulse Rate 126 H 129 H 123 H Respiratory Rate 31 H 26 H 22 H Blood Pressure Pulse Oximetry 97 97 98 Oxygen Delivery Oxygen Flow Rate 02/07/22 20:31 02/07/22 20:47 02/07/22 21:03 Temperature Pulse Rate 109 H 106 H 100 R
[2022-02-08 14:00] VITALS: BP 101/64; PULSE 68; RESP 20; TEMP 36.2; O2SAT 100
[2022-02-08 15:27] VITALS: BMI 21.7
[2022-02-08 19:38] VITALS: BP 133/80; PULSE 88; RESP 18; TEMP 37.1; O2SAT 100
[2022-02-08 20:00] VITALS: PULSE 88; RESP 18; O2SAT 100
[2022-02-08] MEDS: ATORVASTATIN 40 MG TABLET 80 MG FEED TUBE (20:25)
[2022-02-09] MEDS: AMPICILLIN SULB 1.5 GM/NS 50ML 1.5 GM/50 ML VIAL IVPB ×4 (00:05→17:44)
[2022-02-09 03:45] VITALS: BP 120/74; PULSE 70; RESP 17; TEMP 36.3; O2SAT 98
[2022-02-09 07:46] LABS: Estimated CRCL calculation 183 ml/min; Estimated Glomerular Filt Rate > 60
[2022-02-09 07:54] LABS: Vancomycin Trough 9.7 ug/mL (10.0-20.0)
[2022-02-09 08:00] VITALS: O2SAT 98
[2022-02-09] MEDS: CHOLECALCIFEROL 1,000 UNITS TABLET 2000 UNITS PO (09:33)
[2022-02-09] MEDS: amLODIPine BESYLATE 5 MG TABLET 10 MG FEED TUBE (09:33)
[2022-02-09] MEDS: ASPIRIN 81 MG CHEWABLE TABLET FEED TUBE (09:33)
[2022-02-09] MEDS: FAMOTIDINE 20 MG TABLET PO ×2 (09:33→17:44)
[2022-02-09] MEDS: BACLOFEN 5 MG TABLET FEED TUBE ×3 (09:33→17:45)
[2022-02-09] MEDS: CLOPIDOGREL BISULFATE 75 MG TABLET FEED TUBE (09:33)
--- NOTE | 2022-02-09 10:59 | PM.DS ---
DS: Admitting Diagnosis Discharge Date 02/09/22 Admitting Diagnosis Aspiration pneumonia DS: Discharge Diagnosis Discharge Diagnosis (1) Aspiration pneumonia: Code(s): J69.0 - Pneumonitis due to inhalation of food and vomit Status: Acute Assessment and Plan: admit to regular medical floor chest x-ray reviewed continue Unasyn cultures in progress supportive care (2) CVA (cerebral vascular accident): Code(s): I63.9 - Cerebral infarction, unspecified Status: Acute Assessment and Plan: supportive care patient is hemiparetic continue Lipitor continue aspirin continue Plavix (3) Aphasia: Code(s): R47.01 - Aphasia Status: Acute Assessment and Plan: supportive care (4) Right hemiplegia: Code(s): G81.91 - Hemiplegia, unspecified affecting right dominant side Status: Acute Assessment and Plan: fall precautions round the clock turning schedule (5) Gastrostomy tube in place: Code(s): Z93.1 - Gastrostomy status Status: Acute Assessment and Plan: local care DS: Summary Hospital Course Hospital Course: Patient has a chronic PEG tube and is on tube feeds. Patient was brought in for some mild shortness of breath. Found have aspiration pneumonia on x-ray. Did not require oxygen. Patient was started on IV antibiotics and did exceptionally well. He can be discharged on Augmentin. Time Spent with Patient Time attestation: Total time spent providing and/or coordinating discharge services: Exam Const: General: comfortable, no acute distress, well developed, alert, awake, ill appearing acutely and chronically and average body habitus Nutritional Appearance: average body habitus Orientation/consciousness: oriented to person Limitations: physical limitations ( hemiparesis, aphasia.) HENMT: Head: normal to inspection, normocephalic and atraumatic Ears: hearing grossly normal bilaterally Face/Nose/Sinus: normal facial exam Face and sinus: normal facial exam Eyes: General: appearance normal, both eyes and all related structures Pupils: Equal, round and reactive pupils present EOM: EOMs intact bilaterally Neck: Neck: full ROM, no lymphadenopathy and no JVD Thyroid: thyroid normal Lymphatic: no lymphadenopathy noted Resp: Effort & Inspection: normal respiratory effort and able to speak in complete sentences Auscultation: clear to auscultation bilaterally Cardio: Jugular venous distension: no JVD Rate: regular rate Rhythm: regular rhythm Heart sounds: S1 normal heart sound present and S2 normal heart sound present GI: Inspection: other ( G-tube in place) : General: Yes deferred Skin: Rashes: no rashes Wounds: no wounds Other: G-tube in place Neuro: General: oriented to person, CN's II-XI intact bilaterally, Unable to assess gait and other ( patient is hemiparetic) Cranial nerves: Yes CN's II-XII intact bilaterally and Yes Equal, round and reactive pupils present Cognition (Neuro): abnormal cognition ( some degree of obtundation and lethargy) Speech: normal speech Gait exam (Neuro): Unable to assess gait and Other gait observations present ( hemiparetic) Motor exam (neuro): 5/5 motor strength present throughout Extrem: General: normal to inspection, full ROM, no joint enlargement and no pedal edema DS: Data Data Completed and Pending Labs on day of discharge: Labs from last 24 hours 02/09/22 02/09/22 07:13 07:13 Creatinine 0.40 L Estim Creat Clear Calc 183 Estimated GFR > 60 Vancomycin Trough 9.7 L Preliminary micro results at discharge 02/07/22 19:59 Blood Culture - Preliminary Blood 02/07/22 19:59 Blood Culture - Preliminary Blood Discharge Plan Discharge Attending physician on discharge: Lambert Rios Discharging Clinician: Lambert Rios Patient Disposition: Home, Self-Care Activity: no preference Diet: as tolerated Patient I
[2022-02-09 14:13] VITALS: BP 111/73; PULSE 70; RESP 18; TEMP 36.6; O2SAT 97
[2022-02-09] MEDS: SODIUM CHLORIDE 0.9% IV 1,000 ML 125 ML IV CONT (16:00)
--- NOTE | 2022-02-09 18:25 | PC.NURSE ---
Pt has discharge in however per Care Coordination and family, d/c on standby due to family not wanting pt to return to [facility]. Care Coordination in touch with several SNF's. Dr. Rios stated this AM that patients feedings could be resumed but there was no need if he would be discharged later today. Since d/c on hold, no orders for feedings have been entered. Will f/u with hospitalist tomorrow morning.
[2022-02-09 19:45] VITALS: BP 121/78; PULSE 91; RESP 20; TEMP 36.6; O2SAT 98
[2022-02-09] MEDS: ATORVASTATIN 40 MG TABLET 80 MG FEED TUBE (20:18)
[2022-02-09 21:39] LABS: Glucose Point of Care 87 mg/dl (65-105)
[2022-02-10] MEDS: AMPICILLIN SULB 1.5 GM/NS 50ML 1.5 GM/50 ML VIAL IVPB ×5 (00:15→23:50)
[2022-02-10] MEDS: SODIUM CHLORIDE 0.9% IV 1,000 ML 125 ML IV CONT ×3 (03:00→20:17)
[2022-02-10 04:02] VITALS: BP 129/83; PULSE 69; RESP 18; TEMP 36.2; O2SAT 100
[2022-02-10 08:25] VITALS: BP 122/88; PULSE 69; RESP 16; O2SAT 97
[2022-02-10] MEDS: CHOLECALCIFEROL 1,000 UNITS TABLET 2000 UNITS PO (08:26)
[2022-02-10] MEDS: ASPIRIN 81 MG CHEWABLE TABLET FEED TUBE (08:26)
[2022-02-10] MEDS: CLOPIDOGREL BISULFATE 75 MG TABLET FEED TUBE (08:26)
[2022-02-10] MEDS: BACLOFEN 5 MG TABLET FEED TUBE ×3 (08:26→18:42)
[2022-02-10] MEDS: FAMOTIDINE 20 MG TABLET PO ×2 (08:26→18:42)
[2022-02-10] MEDS: amLODIPine BESYLATE 5 MG TABLET 10 MG FEED TUBE (08:26)
--- NOTE | 2022-02-10 11:04 | PM.IMPN ---
Progress Note: A&P Assessment and Plan (1) Aspiration pneumonia: Code(s): J69.0 - Pneumonitis due to inhalation of food and vomit Status: Acute Assessment and Plan: admit to regular medical floor chest x-ray reviewed continue Unasyn cultures in progress supportive care (2) CVA (cerebral vascular accident): Code(s): I63.9 - Cerebral infarction, unspecified Status: Acute Assessment and Plan: supportive care patient is hemiparetic continue Lipitor continue aspirin continue Plavix (3) Aphasia: Code(s): R47.01 - Aphasia Status: Acute Assessment and Plan: supportive care (4) Right hemiplegia: Code(s): G81.91 - Hemiplegia, unspecified affecting right dominant side Status: Acute Assessment and Plan: fall precautions round the clock turning schedule (5) Gastrostomy tube in place: Code(s): Z93.1 - Gastrostomy status Status: Acute Assessment and Plan: local care Subjective Date/time seen: 02/10/22 11:04 No new complaints Exam Const: General: comfortable, no acute distress, well developed, alert, awake, ill appearing acutely and chronically and average body habitus Nutritional Appearance: average body habitus Orientation/consciousness: oriented to person Limitations: physical limitations ( hemiparesis, aphasia.) HENMT: Head: normal to inspection, normocephalic and atraumatic Ears: hearing grossly normal bilaterally Face/Nose/Sinus: normal facial exam Face and sinus: normal facial exam Eyes: General: appearance normal, both eyes and all related structures Pupils: Equal, round and reactive pupils present EOM: EOMs intact bilaterally Neck: Neck: full ROM, no lymphadenopathy and no JVD Thyroid: thyroid normal Lymphatic: no lymphadenopathy noted Resp: Effort & Inspection: normal respiratory effort and able to speak in complete sentences Auscultation: clear to auscultation bilaterally Cardio: Jugular venous distension: no JVD Rate: regular rate Rhythm: regular rhythm Heart sounds: S1 normal heart sound present and S2 normal heart sound present GI: Inspection: other ( G-tube in place) : General: Yes deferred Skin: Rashes: no rashes Wounds: no wounds Other: G-tube in place Neuro: General: oriented to person, CN's II-XI intact bilaterally, Unable to assess gait and other ( patient is hemiparetic) Cranial nerves: Yes CN's II-XII intact bilaterally and Yes Equal, round and reactive pupils present Cognition (Neuro): abnormal cognition ( some degree of obtundation and lethargy) Speech: normal speech Gait exam (Neuro): Unable to assess gait and Other gait observations present ( hemiparetic) Motor exam (neuro): 5/5 motor strength present throughout Extrem: General: normal to inspection, full ROM, no joint enlargement and no pedal edema Objective Data Vital Signs Vital Signs: Vital Signs - 24 hr 02/09/22 14:13 02/09/22 19:45 02/10/22 04:02 Temperature 97.8 F 97.9 F 97.2 F L Pulse Rate 70 91 69 Respiratory Rate 18 20 18 Blood Pressure 111/73 121/78 129/83 Pulse Oximetry 97 98 100 Oxygen Delivery 02/10/22 08:25 02/10/22 08:30 Temperature Pulse Rate 69 Respiratory Rate 16 Blood Pressure 122/88 Pulse Oximetry 97 Oxygen Delivery Room Air Intake/Output Intake/Output: Intake & Output 02/07/22 02/08/22 02/09/22 02/10/22 23:59 23:59 23:59 23:59 Intake Total 2450 3550 2200 1550 Balance 2450 3550 2200 1550 Meds/Results Medications: Active Medications Generic Name Dose Route Start Last Admin Trade Name Claudio PRN Reason Stop Dose Admin Amlodipine Besylate 10 mg 02/08/22 09:00 02/10/22 08:26 Amlodipine Besylate 5 Mg Tablet FEED TUBE 03/10/22 08:59 10 mg DAILY AGUSTÍN Administration Aspirin 81 mg 02/08/22 09:00 02/10/22 08:26 Aspirin 81 Mg Chewable Tablet FEED TUBE 03/10/22 08:59 81 mg DAILY AGUSTÍN Administration Atorvastatin Calcium 80 mg 10
[2022-02-10 15:55] VITALS: BP 124/77; PULSE 76; RESP 20; TEMP 36.9; O2SAT 98
[2022-02-10 20:08] VITALS: BP 131/84; PULSE 73; RESP 18; TEMP 36.2; O2SAT 98
[2022-02-10 20:46] LABS: Vancomycin Trough 9.6 ug/mL (10.0-20.0)
[2022-02-10] MEDS: ATORVASTATIN 40 MG TABLET 80 MG FEED TUBE (21:52)
[2022-02-11 04:19] VITALS: BP 129/80; PULSE 84; RESP 16; TEMP 36.4; O2SAT 95
[2022-02-11] MEDS: AMPICILLIN SULB 1.5 GM/NS 50ML 1.5 GM/50 ML VIAL IVPB ×2 (05:20→13:25)
[2022-02-11 06:33] LABS: Estimated CRCL calculation 183 ml/min; Estimated Glomerular Filt Rate > 60
[2022-02-11] MEDS: SODIUM CHLORIDE 0.9% IV 1,000 ML 125 ML IV CONT (08:01)
[2022-02-11] MEDS: BACLOFEN 5 MG TABLET FEED TUBE ×3 (08:09→16:42)
[2022-02-11] MEDS: CHOLECALCIFEROL 1,000 UNITS TABLET 2000 UNITS PO (08:10)
[2022-02-11] MEDS: FAMOTIDINE 20 MG TABLET PO ×2 (08:10→16:42)
[2022-02-11] MEDS: ASPIRIN 81 MG CHEWABLE TABLET FEED TUBE (08:10)
[2022-02-11] MEDS: amLODIPine BESYLATE 5 MG TABLET 10 MG FEED TUBE (08:10)
[2022-02-11] MEDS: CLOPIDOGREL BISULFATE 75 MG TABLET FEED TUBE (08:10)
--- NOTE | 2022-02-11 10:35 | PM.DS ---
DS: Admitting Diagnosis Discharge Date February 11, 2022 Admitting Diagnosis aspiration pneumonia DS: Discharge Diagnosis Discharge Diagnosis (1) Aspiration pneumonia: Code(s): J69.0 - Pneumonitis due to inhalation of food and vomit Status: Acute Assessment and Plan: admit to regular medical floor chest x-ray reviewed continue Unasyn cultures in progress supportive care (2) CVA (cerebral vascular accident): Code(s): I63.9 - Cerebral infarction, unspecified Status: Acute Assessment and Plan: supportive care patient is hemiparetic continue Lipitor continue aspirin continue Plavix (3) Aphasia: Code(s): R47.01 - Aphasia Status: Acute Assessment and Plan: supportive care (4) Right hemiplegia: Code(s): G81.91 - Hemiplegia, unspecified affecting right dominant side Status: Acute Assessment and Plan: fall precautions round the clock turning schedule (5) Gastrostomy tube in place: Code(s): Z93.1 - Gastrostomy status Status: Acute Assessment and Plan: local care DS: Summary Hospital Course Hospital Course: Patient has a chronic PEG tube and is on tube feeds.? Patient was brought in for some mild shortness of breath.? Found have aspiration pneumonia on x-ray.? Did not require oxygen.? Patient was started on IV antibiotics and did exceptionally well.? He can be discharged on Augmentin. Time Spent with Patient Time attestation: Total time spent providing and/or coordinating discharge services: Exam Const: General: comfortable, no acute distress, well developed, alert, awake, ill appearing acutely and chronically and average body habitus Nutritional Appearance: average body habitus Orientation/consciousness: oriented to person Limitations: physical limitations ( hemiparesis, aphasia.) HENMT: Head: normal to inspection, normocephalic and atraumatic Ears: hearing grossly normal bilaterally Face/Nose/Sinus: normal facial exam Face and sinus: normal facial exam Eyes: General: appearance normal, both eyes and all related structures Pupils: Equal, round and reactive pupils present EOM: EOMs intact bilaterally Neck: Neck: full ROM, no lymphadenopathy and no JVD Thyroid: thyroid normal Lymphatic: no lymphadenopathy noted Resp: Effort & Inspection: normal respiratory effort and able to speak in complete sentences Auscultation: clear to auscultation bilaterally Cardio: Jugular venous distension: no JVD Rate: regular rate Rhythm: regular rhythm Heart sounds: S1 normal heart sound present and S2 normal heart sound present GI: Inspection: other ( G-tube in place) : General: Yes deferred Skin: Rashes: no rashes Wounds: no wounds Other: G-tube in place Neuro: General: oriented to person, CN's II-XI intact bilaterally, Unable to assess gait and other ( patient is hemiparetic) Cranial nerves: Yes CN's II-XII intact bilaterally and Yes Equal, round and reactive pupils present Cognition (Neuro): abnormal cognition ( some degree of obtundation and lethargy) Speech: normal speech Gait exam (Neuro): Unable to assess gait and Other gait observations present ( hemiparetic) Motor exam (neuro): 5/5 motor strength present throughout Extrem: General: normal to inspection, full ROM, no joint enlargement and no pedal edema DS: Data Data Completed and Pending Labs on day of discharge: Labs from last 24 hours 02/11/22 02/10/22 04:43 19:54 Creatinine 0.40 L Estim Creat Clear Calc 183 Estimated GFR > 60 Vancomycin Trough 9.6 L Preliminary micro results at discharge 02/07/22 19:59 Blood Culture - Preliminary Blood 02/07/22 19:59 Blood Culture - Preliminary Blood Discharge Plan Discharge Attending physician on discharge: Lambert Rios Discharging Clinician: Lambert Rios Patient Disposition: Home, Self-Care Activity: no preference Diet: as tolerated
[2022-02-11 14:00] VITALS: BP 117/77; PULSE 72; RESP 14; TEMP 36.8; O2SAT 97
[2022-02-11 16:55] LABS: EDCOVIDSCREEN Negative (Negative)
[2022-02-11 20:09] VITALS: BP 132/79; PULSE 72; RESP 18; TEMP 36.3; O2SAT 97
== END 2022-02-11 20:45 | DRG 137 ==
LOC: ANHED 21:02 → ANH2MED 22:06
PROVIDERS: Admitting Provider Internal Medicine; Emergency Provider Emergency Medicine; PCP Internal Medicine; Visit Provider Chiropractor
DX: J69.0 Pneumonitis due to inhalation of food and vomit (principal); I69.351 Hemiplegia and hemiparesis following cerebral infarction affecting right dominant side; I69.320 Aphasia following cerebral infarction; Z93.1 Gastrostomy status; E78.5 Hyperlipidemia, unspecified; Z20.822 Contact with and (suspected) exposure to COVID-19; Z79.82 Long term (current) use of aspirin; Z79.899 Other long term (current) drug therapy
CPT/HCPCS: 36415; 51701; 71045; 80053; 80202; 81001; 82565; 82948; 83605; 85025; 85610; 85730; 86140; 87040; 87426; 93005; 96365; 96367; 99285; A9270; C9803; J0131; J0295; J3370; J7030; U0003; U0005

== ENCOUNTER 2022-02-17 10:06 | Observation (INO) | payer OTHER, SELFPAY ==
[2022-02-17] VITALS (23 sets, daily range): BP systolic 94–111; BP diastolic 54–78; PULSE 68–91; RESP 17–23; TEMP 36.1–36.3; O2SAT 95–100
--- NOTE | ~2022-02-17 | XR_ITS ---
EXAMINATION: XR chest 1V portable DATE: 02/17/2022 10:42 INDICATION: Shortness of breath. Dysphagia. TECHNIQUE: frontal view of the chest was obtained. COMPARISON: Chest radiograph dated 11/23/2021 FINDINGS: New airspace opacities in the bilateral lower lung zones which could represent aspiration, pneumonia or pulmonary edema. No pleural effusion or pneumothorax. Heart size is normal. Multiple old posterior right rib fractures. IMPRESSION: 1. Opacities in bilateral lower lung zones which could represent or aspiration, pneumonia or pulmonar y edema. Reviewed, dictated and finalized at location A. IMPRESSION: 1. Opacities in bilateral lower lung zones which could represent or aspiration, pneumonia or pulmonary edema.
--- NOTE | 2022-02-17 10:17 | ECG_ITS ---
Measurements Intervals [place] Rate: 89 P: 34 FL: 174 QRS: 53 QRSD: 101 T: 69 QT: 367 QTc: 447 Interpretive Statements SINUS RHYTHM NONSPECIFIC T-WAVE ABNORMALITY BORDERLINE ECG COMPARED TO ECG 02/07/2022 19:00:11 SINUS RHYTHM HAS REPLACED ATRIAL FLUTTER WITH RVR Electronically Signed On 02-17-2022 15:45:08 CDT by Rylan Bojorquez M.D.
--- NOTE | 2022-02-17 10:22 | ED.GENADULT ---
HPI - General Adult General Chief complaint: Unspecified <Alejandra Love PA-C - Last Filed: 02/17/22 18:28> Stated complaint: difficulty breathing, aspiration <Alejandra Love PA-C - Last Filed: 02/17/22 18:28> Source: patient, EMS and old records reviewed <Alejandra Love PA-C - Last Filed: 02/17/22 18:28> Mode of arrival: EMS <ANNAMARIA Saleh Last Filed: 02/17/22 18:28> Limitations: language barrier <ANNAMARIA Saleh Last Filed: 02/17/22 18:28> History of Present Illness HPI narrative: Patient is a 51 y/o male who presents to the ED via EMS with concern for possible aspiration. Patient is a resident of local retirement facility. Hx of CVA w/ residual dysphagia, R sided deficits. He is G-tube dependent on Jevity tube feedings, otherwise NPO. He reportedly ate off of the other residents' trays last night and was found with difficulty breathing this morning. Patient does have Hx of aspiration PNA. NH noted abnormal breath sounds. Patient was initially 88% on RA this morning by nursing staff. He was placed on 2L NC which brought his sats up to 93%. EMS was then called. Patient does not wear oxygen at baseline. BP noted to be in 90s systolic, given liter bolus of LR en route to ED. Patient denies any pain or other acute complaints at this time. <Alejandra Love PA-C - Last Filed: 02/17/22 18:28> Related Data Home medications: Home Medications Medication Instructions Recorded Confirmed Adult Aspirin 81 mg G-tube DAILY 11/23/21 02/17/22 Citroma 296 ml PO DAILY PRN Constipation 11/23/21 02/17/22 Fleet Enema 1 applic RECTAL PRN PRN 11/23/21 02/17/22 Constipation Milk of Magnesia 30 ml G-tube HS PRN Constipation 11/23/21 02/17/22 amlodipine 10 mg G-tube DAILY 11/23/21 02/17/22 atorvastatin 80 mg G-tube HS 11/23/21 02/17/22 baclofen 5 mg G-tube TID 11/23/21 02/17/22 bisacodyl 10 mg RECTAL DAILY PRN Constipation 11/23/21 02/17/22 clopidogrel 75 mg G-tube DAILY 11/23/21 02/17/22 famotidine 20 mg G-tube BID 11/23/21 02/17/22 cholecalciferol (vitamin D3) 50 2,000 unit feeding tube DAILY 02/07/22 02/17/22 mcg (2,000 unit) tablet (Vitamin D3) Saccharomyces boulardii 250 mg 250 mg feeding tube BID 02/17/22 02/17/22 capsule (Florastor) <Alejandra Love PA-C - Last Filed: 02/17/22 18:28> Allergies/adverse reactions: Allergies Allergy/AdvReac Type Severity Reaction Status Date / Time No Known Allergies Allergy Verified 02/17/22 14:29 <Alejandra Love PA-C - Last Filed: 02/17/22 18:28> Review of Systems Review of Systems: ROS unobtainable: Yes unobtainable due to medical condition <Alejandra Love PA-C - Last Filed: 02/17/22 18:28> [facility] Past Medical History Medical History: Medical History (Updated 02/17/22 @ 13:55 by Alejandra Love PA-C) Cerebrovascular accident With resultant aphasia, dysphagia, and right-sided hemiplegia. Chronic anemia Hyperlipidemia Hypertension <Alejandra Love PA-C - Last Filed: 02/17/22 18:28> Surgical History Surgical History: Surgical History History of gastrostomy tube placement <Alejandra Love PA-C - Last Filed: 02/17/22 18:28> Social History Social History: Social History Social History: Surrogate medical decision maker: Code status: Full code. Smoking status: Smoker, status unknown Alcohol intake: unknown Substance use: unknown Spiritual care concerns: No <Alejandra Love PA-C - Last Filed: 02/17/22 18:28> Exam Narrative: GENERAL: Chronically ill appearing, non-toxic, in no acute distress. HEAD: Normocephalic, atraumatic. EYES: PERRL/EOMI, conjunctivae clear bilaterally. THROAT: Pharynx clear, no exudate. MMs dry. NECK: Supple. No adenopathy, no masses. RESPIRATORY: Airway patent, re
[2022-02-17 10:56] LABS: Basophils Percent Auto 0.1 % (0.2-1.2); Hemoglobin 10.9 g/dL (14.0-18.0); Immature Granulocyte Absolute 0.05 K/mm3 (0.00-0.031); Immature Granulocyte Percent A 0.4 % (0-0.5); Lymphocytes Absolute Auto 2.43 K/mm3 (0.9-3.2); Lymphocytes Percent Auto 17.8 % (18.3-44.2); Mean Corpuscular Hemoglobin 31.6 pg (26-34); Mean Corpuscular Volume 95.7 fl (80-100); Mean Platelet Volume 10.3 fl (7.4-10.4); Monocytes Absolute Auto 0.6 K/mm3 (0.1-0.6); Neutrophils Absolute Auto 10.6 K/mm3 (1.3-6.7); Neutrophils Percent Auto 77.7 % (45.5-73.1); Platelet Count Result 218 k/mm3 (150-375); Red Blood Count 3.45 M/mm3 (4.6-6.20); Red Cell Distribution Width 13.1 % (11.5-14.5); White Blood Count 13.7 K/mm3 (4.5-10.0)
[2022-02-17 11:02] LABS: Alanine Aminotransferase 25 U/L (6-50); Alkaline Phosphatase 68 U/L (38-126); Anion Gap 6 mmol/L (8-16); Aspartate Amino Transferase 22 U/L (17-59); Bilirubin,Total 0.5 mg/dL (0.2-1.3); Blood Urea Nitrogen 16 mg/dL (9-20); Calcium 8.2 mg/dL (8.4-10.2); Carbon Dioxide 28 mmol/L (22-30); Chloride 103 mmol/L (98-107); Estimated Glomerular Filt Rate > 60; Glucose 164 mg/dL (65-110); Potassium 3.5 mmol/L (3.4-5.0); Sodium 137 mmol/L (137-145)
[2022-02-17 11:11] LABS: Lactic Acid Reflex 1.9 mmol/L (0.7-2.0)
[2022-02-17 11:17] LABS: NT Pro B Type Natriuretic Pept 483 pg/mL (5-100)
[2022-02-17] MEDS: AMPICILLIN SULB 3 GM/NS 100 ML 3 GM/100 ML VIAL IVPB ×3 (12:27→23:55)
[2022-02-17] MEDS: SODIUM CHLORIDE 0.9% IV 1,000 ML 999 ML IV CONT (12:29)
--- NOTE | 2022-02-17 14:00 | PM.IMHP ---
H&P: HPI History of Present Illness Date/Time: 02/17/22 14:00 Chief Complaint: Shortness of breath. Narrative: This is a 51-year-old male with aphasia, dysphagia, and right-sided deficits from previous stroke who presented to the emergency department via EMS from a local extended care facility for evaluation of shortness of breath. Given his expressive and receptive aphasia he is unable to provide a history and thus almost all of the following is obtained via a review of his electronic medical records. I initially asked him yes or no questions though he made no attempts to nod or shake his head and return. He is supposed to be strictly NPO however staff is concerned that he may have eaten food last evening as he was witnessed taking food off of residents trays. This morning he was found with difficulties breathing with an SpO2 of 88% on room air. Chest x-ray showed bibasilar airspace opacities concerning for aspiration pneumonia and he is being admitted in this setting for IV antibiotics. At the time of my evaluation he is alert and attempts to follow commands but he cannot communicate. Review of Systems Review of Systems: Unable to obtain as he has expressive and receptive aphasia. ON LICENSE OF [facility] Past Medical History Medical History (Updated 02/17/22 @ 21:45 by Sobia Mcdermott PA-C) Cerebrovascular accident With resultant aphasia, dysphagia, and right-sided hemiplegia. Chronic anemia Hyperlipidemia Hypertension Surgical History Surgical History History of gastrostomy tube placement Family History Family History (Updated 02/17/22 @ 21:40 by Sobia Mcdermott PA-C) Other Family history unknown Social History Social History (Updated 02/17/22 @ 21:41 by Sobia Mcdermott PA-C) Social History: Surrogate medical decision maker: Tisha Overton (sister) or Blake Kennedy (son). Code status: Full code. Smoking status: Smoker, status unknown Alcohol intake: unknown Substance use: unknown Additional living arrangements comments: Resident at [facility] in [place]. Meds Home Medications and Allergies Home Medications Medication Instructions Recorded Confirmed Type Adult Aspirin 81 mg G-tube DAILY 11/23/21 02/17/22 History Citroma 296 ml PO DAILY PRN Constipation 11/23/21 02/17/22 History Fleet Enema 1 applic RECTAL PRN PRN 11/23/21 02/17/22 History Constipation Milk of Magnesia 30 ml G-tube HS PRN Constipation 11/23/21 02/17/22 History amlodipine 10 mg G-tube DAILY 11/23/21 02/17/22 History atorvastatin 80 mg G-tube HS 11/23/21 02/17/22 History baclofen 5 mg G-tube TID 11/23/21 02/17/22 History bisacodyl 10 mg RECTAL DAILY PRN Constipation 11/23/21 02/17/22 History clopidogrel 75 mg G-tube DAILY 11/23/21 02/17/22 History famotidine 20 mg G-tube BID 11/23/21 02/17/22 History cholecalciferol (vitamin D3) 50 2,000 unit feeding tube DAILY 02/07/22 02/17/22 History mcg (2,000 unit) tablet (Vitamin D3) amoxicillin 875 mg-potassium 1 tablet PO Q12H 7 days #14 tabs 02/09/22 02/17/22 Rx clavulanate 125 mg tablet Saccharomyces boulardii 250 mg 250 mg feeding tube BID 02/17/22 02/17/22 History capsule (Florastor) Allergies Allergy/AdvReac Type Severity Reaction Status Date / Time No Known Allergies Allergy Verified 02/17/22 14:29 Vital Signs Vital Signs - 24 hr 02/17/22 10:12 02/17/22 10:30 02/17/22 10:21 Temperature 97.1 F L Pulse Rate 91 89 Respiratory Rate 20 20 21 H Blood Pressure 95/64 L Pulse Oximetry 99 99 100 Oxygen Delivery Room Air Oxygen Flow Rate 2 02/17/22 10:30 02/17/22 10:45 02/17/22 11:08 Temperature Pulse Rate 89 84 85 Respiratory Rate 23 H 18 19 Blood Pressure Pulse Oximetry 98 100 99 Oxygen Delivery Oxygen Flow Rate 02/17/22 11:18 02/17/22 11:39 02/17/22 11:45 Temperature Pulse Rate 85 82 83 Respiratory Rate 19 18 18 Blood Pressure 97/54 L Pulse Oxi
--- NOTE | 2022-02-17 14:28 | ADMGEN ---
This patient, Mckinley Kennedy, was admitted to [facility] Surg Room 317-01. Patient/family oriented to hospital policies and general routines including ID bracelet, bed and alarms, visiting hours, pain management, procedures, bathroom and other care routines, personal items, smoking policy, room service/diet, and visiting hours. Information on how to activate the Rapid Response Team has been discussed. Patient/Family are encouraged to report perceived risks to care and to ask questions if they do not understand what they are told or what they should do.
--- NOTE | 2022-02-17 15:17 | PC.NURSE ---
Spoke with [facility] about the patient's medication list. The patient takes NO oral medications. The medications on the medication list sent from the facility that states they give PO are NOT given PO. They have orders from the physician to give through feeding tube. The patient is non-verbal, but will sometimes nod yes or no to questions per RN at [facility].
[2022-02-17] MEDS: ATORVASTATIN 40 MG TABLET FEED TUBE (23:55)
[2022-02-17] MEDS: SODIUM CHLORIDE 0.9% IV 1,000 ML 100 ML IV CONT (23:55)
[2022-02-17] MEDS: BACLOFEN 5 MG TABLET FEED TUBE (23:55)
--- NOTE | 2022-02-18 | ECHO_ITS ---
Patient Info Name: Mckinley Kennedy Age: 51 years : 1970 Gender: Male Ht: 72 in Wt: 159 lbs BSA: 1.91 m2 HR: 65 bpm BP: 129 / 86 mmHg Heart Rhythm: Sinus Rhythm Exam Date: 02/18/2022 3:18 PM Exam Location: [facility] Pulmonary Patient Status: Inpatient Admit Date: 02/17/2022 Staff Ordering Physician: Ivan Zhang MD Tig Welder: Bryan Martins, ASHELY, RT Attending Provider: Ivan Zhang MD Exam Type: CA echo doppler color flow Study Info Indications I45.89 - Other specified conduction disorders Complete two-dimensional, color flow and Doppler transthoracic echocardiogram is performed. Strain analysis performed. Summary 1. Complete two-dimensional, color flow and Doppler transthoracic echocardiogram is performed. 2. Left ventricular chamber dimension is normal. 3. Left ventricular systolic function is normal, estimated at 60-65%. 4. There is mildly increased left ventricular wall thickness. 5. The left ventricular diastolic function is grade I diastolic dysfunction. 6. Global longitudinal strain is abnormal at -16 %. 7. There is mild tricuspid valve regurgitation. Left Ventricle Left ventricular chamber dimension is normal. Left ventricular systolic function is normal, estimated at 60-65%. There is mildly increased left ventricular wall thickness. The left ventricular diastolic function is grade I diastolic dysfunction. Global longitudinal strain is abnormal at -16 %. Right Ventricle Right ventricular chamber dimension is normal. Right ventricular systolic function is normal. Left Atria Left atrial chamber dimension is normal. Right Atria Right atrial chamber dimension is normal. Atrial Septum Intact interatrial septum visualized by color flow imaging. Aortic Valve The aortic valve is trileaflet. There is mild aortic valve sclerosis. There is no aortic valve stenosis. There is trace aortic valve regurgitation. Pulmonic Valve The pulmonic valve is not well visualized. Mitral Valve The mitral valve has calcified annulus. There is no mitral valve stenosis. There is trace mitral valve regurgitation. Tricuspid Valve The tricuspid valve leaflets are normal. There is no significant tricuspid valve stenosis. There is mild tricuspid valve regurgitation. Pericardium/Pleural The pericardium appears normal. There is no pericardial effusion. Inferior Vena Cava Normal inferior vena cava with >50% collapse upon inspiration consistent with normal right atrial pressure, 5 mmHg. Aorta The aortic root size at the sinus of Valsalva is normal. Left Ventricular Outflow Tract Name Value Normal LVOT 2D LVOT Diameter 2.0 cm LVOT Doppler LVOT Peak Gradient 3 mmHg LVOT Mean Gradient 2 mmHg LVOT VTI 19 cm LVOT VTI/AV VTI Ratio 0.8 LVOT Stroke Volume 59 ml LVOT CO 4.3 l/min LVOT CI 2.2 l/min/m2 Mitral Valve
[2022-02-18 01:27] LABS: Add Urine Microscopic? YES; Amorphous Sediment Urine Few; Appearance Urine Cloudy (Clear); Bacteria Urine Trace /hpf; Bilirubin Urine Negative (Negative); Blood Urine Negative (Negative); Color Urine Yellow (Yellow); Glucose Urine UA Negative (Negative); Ketones Urine Negative (Negative); Leukocyte Esterase Ur Negative LEU/UL (Negative); Mucus Urine Rare /lpf; Nitrate Urine Negative (Negative); Protein Urine Negative (Negative); RBC Urine 0-2 /hpf (0-2); Specific Grav Ur 1.014 (1.001-1.035); WBC Urine 0-3 /hpf
[2022-02-18] MEDS: AMPICILLIN SULB 3 GM/NS 100 ML 3 GM/100 ML VIAL IVPB ×4 (05:22→23:52)
[2022-02-18 06:00] VITALS: BP 112/83; PULSE 61; RESP 22; TEMP 36.1; O2SAT 97
[2022-02-18 06:42] LABS: Hematocrit 32.8 % (42.0-52.0); Hemoglobin 10.7 g/dL (14.0-18.0); Mean Corpuscular HGB Conc 32.6 g/dl (32-36); Mean Corpuscular Hemoglobin 30.4 pg (26-34); Mean Corpuscular Volume 93.2 fl (80-100); Mean Platelet Volume 10.4 fl (7.4-10.4); Platelet Count Result 197 k/mm3 (150-375); Red Blood Count 3.52 M/mm3 (4.6-6.20); Red Cell Distribution Width 13.1 % (11.5-14.5); White Blood Count 4.9 K/mm3 (4.5-10.0)
[2022-02-18 06:45] LABS: Anion Gap 9 mmol/L (8-16); Blood Urea Nitrogen 12 mg/dL (9-20); Calcium 8.8 mg/dL (8.4-10.2); Carbon Dioxide 28 mmol/L (22-30); Chloride 104 mmol/L (98-107); Estimated Glomerular Filt Rate > 60; Glucose 83 mg/dL (65-110); Magnesium 1.8 mg/dL (1.6-2.3); Potassium 3.3 mmol/L (3.4-5.0); Sodium 141 mmol/L (137-145)
[2022-02-18 08:00] VITALS: PULSE 61; RESP 22; O2SAT 97
[2022-02-18 08:14] LABS: Hemoglobin A1C 5.1 % (<5.7)
[2022-02-18] MEDS: POTASSIUM CHLORIDE 20 MEQ PACKET (FOR LIQUID) 40 MEQ FEED TUBE (08:47)
[2022-02-18] MEDS: BACLOFEN 5 MG TABLET FEED TUBE ×3 (08:48→18:04)
[2022-02-18] MEDS: SACCHAROMYCES BOULARDII 250 MG CAPSULE FEED TUBE ×2 (08:48→18:04)
[2022-02-18] MEDS: CLOPIDOGREL BISULFATE 75 MG TABLET FEED TUBE (08:48)
[2022-02-18] MEDS: ASPIRIN 81 MG CHEWABLE TABLET FEED TUBE (08:48)
[2022-02-18] MEDS: FAMOTIDINE 20 MG TABLET FEED TUBE ×2 (08:48→21:41)
[2022-02-18] MEDS: CHOLECALCIFEROL 1,000 UNITS TABLET 2000 UNITS FEED TUBE (08:48)
[2022-02-18 14:00] VITALS: BP 129/86; PULSE 76; RESP 16; TEMP 36.2; O2SAT 97
--- NOTE | 2022-02-18 14:24 | PM.IMPN ---
Progress Note: A&P Assessment and Plan (1) Aspiration pneumonia: Qualifiers: Aspiration pneumonia type: due to regurgitated food Laterality: bilateral Lung location: lower lobe of lung Qualified Code(s): J69.0 - Pneumonitis due to inhalation of food and vomit Code(s): J69.0 - Pneumonitis due to inhalation of food and vomit Status: Acute Assessment and Plan: Staff at his longterm are concerned that he may have taken food off of other residents trace last night and eaten them, causing him to aspirate. This was not a witnessed event however. Imaging shows evidence of pneumonia and he was started on Unasyn. Will call over to [place] to try to determine etiology. Okay to resume TF for now. If remains stable, back to [place] tomorrow. (2) Hypoxia: Code(s): R09.02 - Hypoxemia Status: Acute Assessment and Plan: Secondary to above. He has been weaned to room air. (3) Atrial flutter: Code(s): I48.92 - Unspecified atrial flutter Status: Acute Assessment and Plan: EKG on 02/07/2022 showed atrial flutter which is a new finding. Previous EKGs did not show any findings of atrial fibrillation or atrial flutter. EKG on this admission shows normal sinus rhythm and nonspecific T-wave changes. [id number] 3 which warrants anticoagulation. Spoke with family and the CVA was not hemorrhagic. Will check Echo and place on tele. May place on 30 day recorder to verify AFlutter. Check TSH (4) Dysphagia: Code(s): R13.10 - Dysphagia, unspecified Status: Acute Assessment and Plan: As above. Patient is strict NPO. All medications and nutrition through G-tube. (5) Chronic anemia: Code(s): D64.9 - Anemia, unspecified Status: Acute Assessment and Plan: hemoglobin was 12.4 few months ago. Last admission it was 12. Hemoglobin 10.9 here and stable. Will check iron studies since anticoagulation is being considered. Continue to follow. (6) Hypertension: Code(s): I10 - Essential (primary) hypertension Status: Acute Assessment and Plan: Patient's blood pressure was reviewed on 02/18 Blood pressure remains better controlled. Norvasc remains on hold. Will continue to monitor. (7) History of cerebrovascular accident: Code(s): Z86.73 - Personal history of transient ischemic attack (TIA), and cerebral infarction without residual deficits Status: Acute Assessment and Plan: With receptive/expressive aphasia, dysphagia, and right hemiplegia. Continue dual anti-platelet therapy and statin. (8) Hyperglycemia: Code(s): R73.9 - Hyperglycemia, unspecified Status: Acute Assessment and Plan: A1c 5.1. Hyperglycemia related to stress response. Subjective Date/time seen: 02/18/22 14:24 Interval history: 51yo male with aphasia, dysphagia and right-sided thick hemiplegia from previous stroke was brought in from the nursing for shortness of breath. Patient is alert but unable to provide history. Review of Systems Review of Systems: ROS unobtainable: Yes unobtainable due to medical condition Exam Narrative: AF 96.9 112/83 61 22 97% ra Gen - NARD Chest - mildly coarse anteriorly and in the flanks, nml RR CV - RRR S1/S2 Abd - Soft, NT/ND, Positive BS. GTube site is clean, dry and intact. Ext - No pedal edema Neuro - Alert, aphasic. right hemiplegia Psych - Nml mood and affect Skin - Warm and dry Objective Data Vital Signs Vital Signs: Vital Signs - 24 hr 02/17/22 22:00 02/18/22 06:00 02/18/22 08:00 Temperature 97 F L 96.9 F L Pulse Rate 68 61 61 Respiratory Rate 19 22 H 22 H Blood Pressure 111/73 112/83 Pulse Oximetry 97 97 97 Oxygen Delivery Room Air Intake/Output Intake/Output: Intake & Output 02/15/22 02/16/22 02/17/22 02/18/22 23:59 23:59 23:59 23:59 Intake Total 1200 100 Output Total 300 300 Balance 900 -200 Meds/Resul
[2022-02-18 16:00] VITALS: PULSE 76
[2022-02-18 21:26] VITALS: BP 128/92; PULSE 77; RESP 18; TEMP 36.4; O2SAT 98
[2022-02-18] MEDS: ATORVASTATIN 40 MG TABLET FEED TUBE (21:41)
[2022-02-19 02:59] LABS: SARS-CoV-2 RNA PCR Negative
[2022-02-19 05:42] VITALS: BP 115/80; PULSE 60; RESP 17; TEMP 36.4; O2SAT 95
[2022-02-19] MEDS: AMPICILLIN SULB 3 GM/NS 100 ML 3 GM/100 ML VIAL IVPB ×2 (05:44→11:57)
[2022-02-19 06:16] LABS: Hemoglobin 11.8 g/dL (14.0-18.0); Mean Corpuscular HGB Conc 33.7 g/dl (32-36); Mean Corpuscular Hemoglobin 31.6 pg (26-34); Mean Corpuscular Volume 93.8 fl (80-100); Mean Platelet Volume 10.2 fl (7.4-10.4); Platelet Count Result 201 k/mm3 (150-375); Red Blood Count 3.73 M/mm3 (4.6-6.20); Red Cell Distribution Width 12.6 % (11.5-14.5); White Blood Count 4.7 K/mm3 (4.5-10.0)
[2022-02-19 06:33] LABS: Anion Gap 11 mmol/L (8-16); Blood Urea Nitrogen 12 mg/dL (9-20); Calcium 8.9 mg/dL (8.4-10.2); Carbon Dioxide 26 mmol/L (22-30); Chloride 102 mmol/L (98-107); Estimated Glomerular Filt Rate > 60; Glucose 75 mg/dL (65-110); Magnesium 1.8 mg/dL (1.6-2.3); Potassium 3.4 mmol/L (3.4-5.0); Sodium 139 mmol/L (137-145)
[2022-02-19] MEDS: FAMOTIDINE 20 MG TABLET FEED TUBE (08:13)
[2022-02-19] MEDS: CLOPIDOGREL BISULFATE 75 MG TABLET FEED TUBE (08:13)
[2022-02-19] MEDS: ASPIRIN 81 MG CHEWABLE TABLET FEED TUBE (08:13)
[2022-02-19] MEDS: SACCHAROMYCES BOULARDII 250 MG CAPSULE FEED TUBE (08:13)
[2022-02-19] MEDS: CHOLECALCIFEROL 1,000 UNITS TABLET 2000 UNITS FEED TUBE (08:13)
[2022-02-19] MEDS: BACLOFEN 5 MG TABLET FEED TUBE ×2 (08:14→12:00)
[2022-02-19 08:36] LABS: Folic Acid 7.6 ng/mL (2.76->20)
[2022-02-19 09:14] VITALS: BMI 21.8
[2022-02-19 09:22] LABS: Iron 72 ug/dL (49-181)
[2022-02-19 09:32] LABS: Percent Iron Saturation 33 % (20-50)
[2022-02-19 10:33] VITALS: BMI 21.8
--- NOTE | 2022-02-19 11:10 | PCNSR ---
On 02/19/22, the student, Shahid Newby, provided care and completed [facility] documentation on this patient. I have reviewed the student's documentation and agree with the findings.
--- NOTE | 2022-02-19 13:25 | PM.DS ---
DS: Admitting Diagnosis Discharge Date 02/19/22 Admitting Diagnosis Shortness of breath DS: Discharge Diagnosis Discharge Diagnosis (1) Aspiration pneumonia: Qualifiers: Aspiration pneumonia type: due to regurgitated food Laterality: bilateral Lung location: lower lobe of lung Qualified Code(s): J69.0 - Pneumonitis due to inhalation of food and vomit Code(s): J69.0 - Pneumonitis due to inhalation of food and vomit Status: Acute (2) Hypoxia: Code(s): R09.02 - Hypoxemia Status: Acute (3) Atrial flutter: Code(s): I48.92 - Unspecified atrial flutter Status: Acute (4) Dysphagia: Code(s): R13.10 - Dysphagia, unspecified Status: Acute (5) Chronic anemia: Code(s): D64.9 - Anemia, unspecified Status: Acute (6) Hypertension: Code(s): I10 - Essential (primary) hypertension Status: Acute (7) History of cerebrovascular accident: Code(s): Z86.73 - Personal history of transient ischemic attack (TIA), and cerebral infarction without residual deficits Status: Acute (8) Hyperglycemia: Code(s): R73.9 - Hyperglycemia, unspecified Status: Acute DS: Summary Hospital Course Reason for hospitalization: 51yo male with aphasia, dysphagia and right-sided thick hemiplegia from previous stroke was brought in from the nursing for shortness of breath. Please see H&P for details Hospital Course: Staff at his [facility] were concerned that he may have eaten food off of other residents trays resulting in him aspirating. This was not a witnessed event however. WBC was 14K and CXR showing evidence of pneumonia. He was started on Unasyn. The nursing facility verified this histpry. We resumed his tube feedings. He was easily weaned to room air. On chart review, EKG on 02/07/2022 showed possible atrial flutter which was a new finding.? Previous EKGs did not show any findings of atrial fibrillation or atrial flutter.? EKG on this admission showed normal sinus rhythm and nonspecific T-wave changes. [id number] 3 which warrants anticoagulation. Spoke with family and the CVA was not hemorrhagic. Echo ordered and is pending. Placed on tele but no dysrhythmias. TSH pending. Hgb was 12.4 few months ago.? Last admission it was 12.? Hemoglobin 10.9 here and increasing to 11.8; felt patient at baseline. Anemia workup more consistent with anemia of chronic disease. Patient has history of CVA with receptive/expressive aphasia, dysphagia, and right hemiplegia. We continued dual anti-platelet therapy and statin. Hyperglycemia noted but A1c 5.1.? Patient overall did well and was able to be discharged rupesh to the [facility]p on 02/19/22 Status at Discharge Cognitive/behavioral status at discharge: Stable Time Spent with Patient Time attestation: Total time spent providing and/or coordinating discharge services: 34 minutes Time spent: Greater than 30 minutes Specific discharge activities: Long discussion with POA about risks/benefits of AC. She is more worried about recurrent CVA and wishes to add Eliquis. Exam Narrative: AF 97.6 115/80 60 17 95% ra Gen - NARD Chest - clear anteriorly CV - RRR S1/S2 Abd - Soft, NT/ND, Positive BS. GTube site is clean, dry and intact. Ext - No pedal edema Neuro - Alert, aphasic. right hemiplegia Psych - Nml mood and affect Skin - Warm and dry DS: Data Data Completed and Pending Labs on day of discharge: Labs from last 24 hours 02/19/22 02/19/22 02/19/22 06:00 06:00 06:00 WBC 4.7 RBC 3.73 L Hgb 11.8 L Hct 35.0 L MCV 93.8 MCH 31.6 MCHC 33.7 RDW 12.6 Plt Count 201 MPV 10.2 Sodium 139 Potassium 3.4 Chloride 102 Carbon Dioxide 26 Anion Gap 11 BUN 12 Creatinine 0.40 L Estim Creat Clear Calc Not Reportable Estimated GFR > 60 Glucose 75 Calcium 8.9 Magnesium 1.8 Iron 72 TIBC 220 L % Saturation 33 Ferritin 3
[2022-02-19 14:00] VITALS: BP 138/97; PULSE 109; RESP 18; TEMP 36.6; O2SAT 97
[2022-02-19 15:42] LABS: EDCOVIDSCREEN Negative (Negative)
--- NOTE | 2022-02-25 11:55 | PC.NURSE ---
TSH WNL at 1.120 Blood cx are negative Echo report shown to Dr. Zhang. Dr. Zhang aware of all findings.
== END 2022-02-19 17:20 ==
LOC: ANHED 10:21 → ANH3MEDSUR 13:26
PROVIDERS: Internal Medicine; Physician Assistant; Admitting Provider Internal Medicine; Emergency Provider Emergency Medicine; PCP Internal Medicine; Visit Provider Internal Medicine
DX: J69.0 Pneumonitis due to inhalation of food and vomit (principal); R09.02 Hypoxemia; I48.92 Unspecified atrial flutter; D64.9 Anemia, unspecified; I10 Essential (primary) hypertension; I69.320 Aphasia following cerebral infarction; I69.359 Hemiplegia and hemiparesis following cerebral infarction affecting unspecified side; I69.391 Dysphagia following cerebral infarction; R73.9 Hyperglycemia, unspecified; I95.9 Hypotension, unspecified; Z20.822 Contact with and (suspected) exposure to COVID-19; Z23 Encounter for immunization; D72.829 Elevated white blood cell count, unspecified; I07.1 Rheumatic tricuspid insufficiency; Z93.1 Gastrostomy status; R06.02 Shortness of breath; F17.200 Nicotine dependence, unspecified, uncomplicated; Z87.898 Personal history of other specified conditions; Z87.01 Personal history of pneumonia (recurrent); Z79.02 Long term (current) use of antithrombotics/antiplatelets; Z79.82 Long term (current) use of aspirin; Z79.899 Other long term (current) drug therapy
CPT/HCPCS: 36415; 71045; 80048; 80053; 81001; 82607; 82728; 82746; 83036; 83540; 83550; 83605; 83735; 83880; 84443; 85025; 85027; 87040; 87426; 90471; 90686; 93005; 93306; 96365; 96366; 99285; A9270; C9803; G0008; G0378; J0295; J7030; U0003; U0005

== ENCOUNTER 2022-03-04 03:30 | Inpatient (IN) | payer OTHER, SELFPAY ==
[2022-03-04] VITALS (29 sets, daily range): BP systolic 91–117; BP diastolic 61–79; PULSE 72–129; RESP 16–31; TEMP 35.9–37.3; O2SAT 91–97
--- NOTE | ~2022-03-04 | XR_ITS ---
XR chest 1V portable 03/06/2022 08:29 Indication: Shortness of breath. Evaluate for pneumonia. Procedure: AP portable chest Comparison: Comparison to multiple prior studies sequentially, with oldest reviewed study dated 11/23. Findings: There are chronic bibasilar infiltrates. Heart size normal. No significant effusion or pneu mothorax. No acute osseous abnormality. Impression: 1: Chronic bibasilar infiltrates which may represent atelectasis/scarring or atypical pneumonia. Reviewed, dictated and finalized at location A. Impression: 1: Chronic bibasilar infiltrates which may represent atelectasis/scarring or at ypical pneumonia.
--- NOTE | ~2022-03-04 | XR_ITS ---
EXAMINATION: XR chest 1V portable DATE: 03/04/2022 04:38 INDICATION: Aspiration. TECHNIQUE: A single frontal view of the chest was obtained. COMPARISON: Chest single view 02/17/2022 FINDINGS: There is mild atelectasis in the lower lung zones. No pleural effusion or pneumothorax. The heart size is normal. There are old right rib fractures. IMPRESSION: 1. Mild atelectasis in the lower lung zones with interval improvement. Reviewed, dictated and finalized at location A.
[2022-03-04] MEDS: SODIUM CHLORIDE 0.9% IV 1,000 ML 999 ML IV CONT (03:26)
[2022-03-04] MEDS: LACTATED RINGERS 1,000 ML 999 ML IV CONT (04:26)
[2022-03-04 04:33] LABS: Basophils Percent Auto 0.1 % (0.2-1.2); Hematocrit 37.5 % (42.0-52.0); Hemoglobin 12.5 g/dL (14.0-18.0); Immature Granulocyte Absolute 0.05 K/mm3 (0.00-0.031); Immature Granulocyte Percent A 0.4 % (0-0.5); Lymphocytes Absolute Auto 2.01 K/mm3 (0.9-3.2); Lymphocytes Percent Auto 17.9 % (18.3-44.2); Mean Corpuscular HGB Conc 33.3 g/dl (32-36); Mean Corpuscular Hemoglobin 30.9 pg (26-34); Mean Corpuscular Volume 92.8 fl (80-100); Mean Platelet Volume 10.5 fl (7.4-10.4); Monocytes Absolute Auto 0.6 K/mm3 (0.1-0.6); Neutrophils Absolute Auto 8.6 K/mm3 (1.3-6.7); Neutrophils Percent Auto 76.6 % (45.5-73.1); Platelet Count Result 291 k/mm3 (150-375); Red Blood Count 4.04 M/mm3 (4.6-6.20); Red Cell Distribution Width 13.4 % (11.5-14.5); White Blood Count 11.2 K/mm3 (4.5-10.0)
[2022-03-04 04:34] LABS: Alanine Aminotransferase 34 U/L (6-50); Albumin Level 3.6 g/dL (3.5-5.1); Alkaline Phosphatase 84 U/L (38-126); Anion Gap 10 mmol/L (8-16); Aspartate Amino Transferase 32 U/L (17-59); Bilirubin,Total 0.5 mg/dL (0.2-1.3); Blood Urea Nitrogen 21 mg/dL (9-20); Calcium 8.6 mg/dL (8.4-10.2); Carbon Dioxide 24 mmol/L (22-30); Chloride 106 mmol/L (98-107); Estimated Glomerular Filt Rate > 60; Glucose 141 mg/dL (65-110); Potassium 3.5 mmol/L (3.4-5.0); Sodium 140 mmol/L (137-145)
--- NOTE | 2022-03-04 04:51 | ED.GENADULT ---
HPI - General Adult General Chief complaint: Unspecified Stated complaint: drinking tube feed History of Present Illness HPI narrative: Patient does have a history of CVAs complicated by dysphagia requiring G-tube, who presents frequently when he tries to drink from his G-tube and aspirates, presents with another episode of suspected aspiration pneumonia where he was found hypoxic by nursing staff, and drinking from his G-tube. Per EMS was febrile when they arrived. Related Data Home Medications Medication Instructions Recorded Confirmed Adult Aspirin 81 mg G-tube DAILY 11/23/21 02/17/22 Fleet Enema 1 applic RECTAL PRN PRN 11/23/21 02/17/22 Constipation Milk of Magnesia 30 ml G-tube HS PRN Constipation 11/23/21 02/17/22 amlodipine 10 mg G-tube DAILY 11/23/21 02/17/22 atorvastatin 80 mg G-tube HS 11/23/21 02/17/22 baclofen 5 mg G-tube TID 11/23/21 02/17/22 bisacodyl 10 mg RECTAL DAILY PRN Constipation 11/23/21 02/17/22 famotidine 20 mg G-tube BID 11/23/21 02/17/22 cholecalciferol (vitamin D3) 50 2,000 unit feeding tube DAILY 02/07/22 02/17/22 mcg (2,000 unit) tablet (Vitamin D3) Saccharomyces boulardii 250 mg 250 mg feeding tube BID 02/17/22 02/17/22 capsule (Florastor) Allergies Allergy/AdvReac Type Severity Reaction Status Date / Time No Known Allergies Allergy Verified 02/17/22 14:29 Review of Systems Review of Systems: Unable to obtain given patient is nonverbal at baseline [facility] Past Medical History Medical History Cerebrovascular accident With resultant aphasia, dysphagia, and right-sided hemiplegia. Chronic anemia Hyperlipidemia Hypertension Surgical History Surgical History History of gastrostomy tube placement Family History Family History Other Family history unknown Social History Social History Social History: Surrogate medical decision maker: Tishamarti Overton (sister) or Blake Kennedy (son). Code status: Full code. Smoking status: Smoker, status unknown Alcohol intake: unknown Substance use: unknown Additional living arrangements comments: Resident at [facility] in [place]. Spiritual care concerns: No Exam Narrative: EXAMINATION OF ORGAN SYSTEMS/BODY AREAS: Constitutional: Vital signs per nursing GENERAL:[No acute distress, non-toxic appearing.] HEAD: Normal with no signs of head trauma. EYES: EOMI, conjunctiva normal ENT: Hearing grossly intact LUNGS: Slightly tachypneic HEART: Tacycardic ABD: [Soft], [tender to palpation] EXT: Normal range of motion SKIN: [No rashes or lesions.] NEURO: [Alert; nonverbal. No gross focal sensory or strength deficits.] PSYCH: Flat affect Course Vital Signs Vital signs: Vital Signs Temperature 99.2 F 03/04/22 03:29 Pulse Rate 129 H 03/04/22 03:29 Respiratory Rate 16 03/04/22 03:29 Blood Pressure 101/73 03/04/22 03:29 Pulse Oximetry 94 03/04/22 03:29 Oxygen Delivery Nasal Cannula 03/04/22 03:29 Oxygen Flow Rate 2 03/04/22 03:29 Temperature 99.2 F 03/04/22 03:29 Pulse Rate 100 03/04/22 05:01 Respiratory Rate 25 H 03/04/22 05:01 Blood Pressure 96/64 L 03/04/22 05:01 Pulse Oximetry 95 03/04/22 05:01 Oxygen Delivery Nasal Cannula 03/04/22 03:29 Oxygen Flow Rate 2 03/04/22 03:29 Medical Decision Making [facility] Narrative Medical decision making narrative: 51-year-old male presenting after suspected aspiration pneumonia, vital signs notable for hypoxia here and tachycardia, blood cultures obtained and he is started on antibiotics for presumed aspiration pneumonia, which does appear consistent based on his chest x-ray on my own interpretation. We were able to wean him down to 2 L nasal cannula, however when I try to take him off oxygen he does desaturate to 90% therefo
[2022-03-04 04:53] LABS: SARS-CoV-2 RNA PCR Negative
[2022-03-04] MEDS: AMPICILLIN SULB 1.5 GM/NS 50ML 1.5 GM/50 ML VIAL IVPB ×3 (05:12→17:37)
--- NOTE | 2022-03-04 15:55 | PM.IMHP ---
H&P: HPI History of Present Illness Date/Time: 03/04/22 15:55 Chief Complaint: shortness of breath Narrative: This is a 51-year-old male with aphasia, dysphagia, and right-sided deficits from previous stroke who presented to the emergency department via EMS from a local extended care facility for evaluation of shortness of breath. as patient was seen drinking from his Gtube, and became short of breath, suspect aspiration pneumonia and patient was sent to ER. Given his expressive and receptive aphasia he is unable to provide a history and thus almost all of the following is obtained via a review of his electronic medical records. patient remains clinically stable, from ER Zosyn was started and blood culture are ordered from ER. will continue monitor and further recommendation to follow patient admitted as observation status. Review of Systems Review of Systems: ROS unobtainable: Yes unobtainable due to medical condition PMFSH Past Medical History Medical History Cerebrovascular accident With resultant aphasia, dysphagia, and right-sided hemiplegia. Chronic anemia Hyperlipidemia Hypertension Surgical History Surgical History History of gastrostomy tube placement Family History Family History Other Family history unknown Social History Social History Social History: Surrogate medical decision maker: Tishamarti Overton (sister) or Blake Kennedy (son). Code status: Full code. Smoking status: Unknown if ever smoked Alcohol intake: unknown Substance use: unknown Additional living arrangements comments: Resident at [facility] in [place]. Spiritual care concerns: No Meds Home Medications and Allergies Home Medications Medication Instructions Recorded Confirmed Type Fleet Enema 1 applic RECTAL PRN PRN 11/23/21 03/04/22 History Constipation ##0 Milk of Magnesia 30 ml G-tube HS PRN Constipation 11/23/21 03/04/22 History ##0 amlodipine 5 mg tablet 10 mg G-tube DAILY ##0 11/23/21 03/04/22 History aspirin 81 mg chewable tablet 81 mg G-tube DAILY ##0 11/23/21 03/04/22 History atorvastatin 80 mg G-tube HS ##0 11/23/21 03/04/22 History baclofen 5 mg tablet 5 mg G-tube TID ##0 11/23/21 03/04/22 History bisacodyl 10 mg rectal suppository 10 mg RECTAL DAILY PRN 11/23/21 03/04/22 History Constipation ##0 famotidine 20 mg tablet 20 mg G-tube BID ##0 11/23/21 03/04/22 History cholecalciferol (vitamin D3) 50 2,000 unit feeding tube DAILY 02/07/22 03/04/22 History mcg (2,000 unit) tablet (Vitamin D3) Citroma 296 ml G-tube DAILY PRN 02/19/22 03/04/22 Rx Constipation #1 mL apixaban 5 mg tablet (Eliquis) 5 mg feeding tube BID 03/04/22 03/04/22 History Allergies Allergy/AdvReac Type Severity Reaction Status Date / Time No Known Allergies Allergy Verified 02/17/22 14:29 Vital Signs Vital Signs - 24 hr 03/04/22 03:29 03/04/22 04:04 03/04/22 04:15 Temperature 99.2 F Pulse Rate 129 H 115 H 107 H Respiratory Rate 16 31 H 25 H Blood Pressure 101/73 Pulse Oximetry 94 Oxygen Delivery Nasal Cannula Oxygen Flow Rate 2 03/04/22 04:16 03/04/22 04:30 03/04/22 04:31 Temperature Pulse Rate 109 H 103 H 106 H Respiratory Rate 25 H 26 H 27 H Blood Pressure 93/68 L 93/62 L Pulse Oximetry Oxygen Delivery Oxygen Flow Rate 03/04/22 04:45 03/04/22 05:00 03/04/22 05:01 Temperature Pulse Rate 99 100 100 Respiratory Rate 25 H 25 H 25 H Blood Pressure 96/64 L Pulse Oximetry 94 95 Oxygen Delivery Oxygen Flow Rate 03/04/22 05:02 03/04/22 05:15 03/04/22 05:16 Temperature Pulse Rate 98 96 97 Respiratory Rate 25 H 23 H 23 H Blood Pressure 92/65 L Pulse Oximetry Oxygen Delivery Oxygen Flow Rate 03/04/22 05:30 03/04/22 05:31
[2022-03-05] VITALS (9 sets, daily range): BP systolic 105–120; BP diastolic 75–82; PULSE 61–72; RESP 18–20; TEMP 36.2–36.6; O2SAT 95–99
[2022-03-05] MEDS: AMPICILLIN SULB 1.5 GM/NS 50ML 1.5 GM/50 ML VIAL IVPB ×4 (00:05→18:27)
[2022-03-05 08:51] LABS: Hemoglobin 11.5 g/dL (14.0-18.0); Mean Corpuscular HGB Conc 31.9 g/dl (32-36); Mean Corpuscular Hemoglobin 30.3 pg (26-34); Platelet Count Result 228 k/mm3 (150-375); Red Blood Count 3.79 M/mm3 (4.6-6.20); Red Cell Distribution Width 13.4 % (11.5-14.5); White Blood Count 3.3 K/mm3 (4.5-10.0)
[2022-03-05 08:59] LABS: Alanine Aminotransferase 34 U/L (6-50); Albumin Level 3.2 g/dL (3.5-5.1); Alkaline Phosphatase 64 U/L (38-126); Anion Gap 11 mmol/L (8-16); Aspartate Amino Transferase 34 U/L (17-59); Bilirubin,Total 0.8 mg/dL (0.2-1.3); Blood Urea Nitrogen 17 mg/dL (9-20); Calcium 8.8 mg/dL (8.4-10.2); Carbon Dioxide 28 mmol/L (22-30); Chloride 104 mmol/L (98-107); Estimated Glomerular Filt Rate > 60; Glucose 85 mg/dL (65-110); Magnesium 1.8 mg/dL (1.6-2.3); Potassium 3.6 mmol/L (3.4-5.0); Sodium 143 mmol/L (137-145)
[2022-03-05] MEDS: APIXABAN 5 MG TABLET FEED TUBE ×2 (09:27→18:27)
[2022-03-05] MEDS: ASPIRIN 81 MG CHEWABLE TABLET FEED TUBE (09:27)
[2022-03-05] MEDS: amLODIPine BESYLATE 5 MG TABLET 10 MG FEED TUBE (09:27)
[2022-03-05] MEDS: CHOLECALCIFEROL 1,000 UNITS TABLET 2000 UNITS FEED TUBE (09:27)
[2022-03-05] MEDS: FAMOTIDINE 20 MG TABLET FEED TUBE ×2 (09:27→18:27)
[2022-03-05] MEDS: BACLOFEN 5 MG TABLET FEED TUBE ×3 (09:27→18:27)
--- NOTE | 2022-03-05 15:52 | PM.IMPN ---
Progress Note: A&P Assessment and Plan (1) Acute respiratory failure with hypoxia: Code(s): J96.01 - Acute respiratory failure with hypoxia Status: Acute Assessment and Plan: 03/05/2022 interval history: This is a 51-year-old male with aphasia, dysphagia, and right-sided deficits from previous stroke who presented to the emergency department via EMS from a local extended care facility for evaluation of shortness of breath. as patient was seen drinking from his Gtube, and became short of breath, suspect aspiration pneumonia and patient was sent to ER. Given his expressive and receptive aphasia he is unable to provide a history and thus almost all of the following is obtained via a review of his electronic medical records. patient remains clinically stable, from ER Zosyn was started and blood culture are ordered from ER. today is day 2 of antibiotics, unfortunately patient is unable to provide any history or review of symptom, will continue monitor and further recommendation to follow (2) History of cerebrovascular accident: Code(s): Z86.73 - Personal history of transient ischemic attack (TIA), and cerebral infarction without residual deficits Status: Acute Assessment and Plan: patient with CVA resulting in expressive and receptive aphasia (3) Dysphagia: Code(s): R13.10 - Dysphagia, unspecified Status: Acute Assessment and Plan: status post CV resulting in dysphagia, patient has a PEG feeding Subjective Date/time seen: 03/05/22 15:52 03/05/2022 interval history: This is a 51-year-old male with aphasia, dysphagia, and right-sided deficits from previous stroke who presented to the emergency department via EMS from a local extended care facility for evaluation of shortness of breath. as patient was seen drinking from his Gtube, and became short of breath, suspect aspiration pneumonia and patient was sent to ER. Given his expressive and receptive aphasia he is unable to provide a history and thus almost all of the following is obtained via a review of his electronic medical records. patient remains clinically stable, from ER Zosyn was started and blood culture are ordered from ER. today is day 2 of antibiotics, unfortunately patient is unable to provide any history or review of symptom, will continue monitor and further recommendation to follow Review of Systems Review of Systems: ROS unobtainable: Yes unobtainable due to medical condition Exam Narrative: appears chronically ill Patient is comfortable, NAD HEENT: eyes are clear and none icteric LUNGS: normal respiratory effort ABD: not distended Lower extremities: no edema SKIN: nonjaundiced Neuro: grossly intact. Objective Data Vital Signs Vital Signs: Vital Signs - 24 hr 03/04/22 16:00 03/04/22 21:07 03/04/22 22:00 Temperature 97.9 F Pulse Rate 80 81 Respiratory Rate 20 Blood Pressure 117/79 Pulse Oximetry 96 94 Oxygen Delivery Nasal Cannula Oxygen Flow Rate 2 03/04/22 20:00 03/05/22 00:00 03/05/22 04:00 Temperature Pulse Rate 72 68 63 Respiratory Rate Blood Pressure Pulse Oximetry Oxygen Delivery Oxygen Flow Rate 03/05/22 05:57 03/05/22 08:00 03/05/22 08:00 Temperature 97.5 F L Pulse Rate 62 62 62 Respiratory Rate 20 20 Blood Pressure 105/75 Pulse Oximetry 99 99 Oxygen Delivery Nasal Cannula Oxygen Flow Rate 2 03/05/22 12:00 Temperature Pulse Rate 62 Respiratory Rate Blood Pressure Pulse Oximetry Oxygen Delivery Oxygen Flow Rate Intake/Output Intake/Output: Intake & Output 03/02/22 03/03/22 03/04/22 03/05/22 23:59 23:59 23:59 23:59 Intake Total 2150 100 Balance 2150 100 Meds/Results Medications: Active Medications Generic Name Dose Route Start Last Admin Trade Name Dinoq PRN Reason Stop Dose Admin Amlodipine Besylate 10 mg 03/05/22 09:00 03/05/22 09:27 Amlodipine Besylate 5 Mg Tablet FEED TUBE 10 mg
[2022-03-05] MEDS: ATORVASTATIN 40 MG TABLET 80 MG FEED TUBE (20:38)
[2022-03-06] VITALS (9 sets, daily range): BP systolic 114–138; BP diastolic 73–83; PULSE 59–69; RESP 18–20; TEMP 36.2–36.5; O2SAT 95–98
[2022-03-06] MEDS: AMPICILLIN SULB 1.5 GM/NS 50ML 1.5 GM/50 ML VIAL IVPB ×5 (01:00→23:53)
[2022-03-06 06:46] LABS: Hematocrit 36.8 % (42.0-52.0); Mean Corpuscular HGB Conc 32.6 g/dl (32-36); Mean Corpuscular Hemoglobin 30.2 pg (26-34); Mean Corpuscular Volume 92.7 fl (80-100); Mean Platelet Volume 10.6 fl (7.4-10.4); Platelet Count Result 259 k/mm3 (150-375); Red Blood Count 3.97 M/mm3 (4.6-6.20); Red Cell Distribution Width 13.1 % (11.5-14.5); White Blood Count 3.8 K/mm3 (4.5-10.0)
[2022-03-06 06:52] LABS: Alanine Aminotransferase 34 U/L (6-50); Albumin Level 3.3 g/dL (3.5-5.1); Alkaline Phosphatase 67 U/L (38-126); Anion Gap 13 mmol/L (8-16); Aspartate Amino Transferase 33 U/L (17-59); Bilirubin,Total 0.8 mg/dL (0.2-1.3); Blood Urea Nitrogen 17 mg/dL (9-20); Calcium 8.5 mg/dL (8.4-10.2); Carbon Dioxide 26 mmol/L (22-30); Chloride 103 mmol/L (98-107); Estimated Glomerular Filt Rate > 60; Glucose 75 mg/dL (65-110); Magnesium 1.8 mg/dL (1.6-2.3); Potassium 3.3 mmol/L (3.4-5.0); Sodium 142 mmol/L (137-145)
[2022-03-06] MEDS: POTASSIUM CHLORIDE 20 MEQ PACKET (FOR LIQUID) 40 MEQ PO (09:30)
[2022-03-06] MEDS: amLODIPine BESYLATE 5 MG TABLET 10 MG FEED TUBE (09:33)
[2022-03-06] MEDS: FAMOTIDINE 20 MG TABLET FEED TUBE ×2 (09:33→17:06)
[2022-03-06] MEDS: BACLOFEN 5 MG TABLET FEED TUBE ×3 (09:33→17:06)
[2022-03-06] MEDS: CHOLECALCIFEROL 1,000 UNITS TABLET 2000 UNITS FEED TUBE (09:33)
[2022-03-06] MEDS: ASPIRIN 81 MG CHEWABLE TABLET FEED TUBE (09:33)
[2022-03-06] MEDS: APIXABAN 5 MG TABLET FEED TUBE ×2 (09:34→17:06)
--- NOTE | 2022-03-06 13:15 | PM.IMPN ---
Progress Note: A&P Assessment and Plan (1) Acute respiratory failure with hypoxia: Code(s): J96.01 - Acute respiratory failure with hypoxia Status: Acute Assessment and Plan: 03/06/2022 interval history: This is a 51-year-old male with aphasia, dysphagia, and right-sided deficits from previous stroke who presented to the emergency department via EMS from a local extended care facility for evaluation of shortness of breath. as patient was seen drinking from his Gtube, and became short of breath, suspect aspiration pneumonia and patient was sent to ER. Given his expressive and receptive aphasia he is unable to provide a history and thus almost all of the following is obtained via a review of his electronic medical records. patient remains clinically stable, from ER Zosyn was started and blood culture are ordered from ER. today is day 3 of antibiotics, blood culture no growth so far, unfortunately patient is unable to provide any history or review of symptom, will continue monitor and further recommendation to follow (2) History of cerebrovascular accident: Code(s): Z86.73 - Personal history of transient ischemic attack (TIA), and cerebral infarction without residual deficits Status: Acute Assessment and Plan: patient with CVA resulting in expressive and receptive aphasia (3) Dysphagia: Code(s): R13.10 - Dysphagia, unspecified Status: Acute Assessment and Plan: status post CV resulting in dysphagia, patient has a PEG feeding Subjective Date/time seen: 03/06/22 13:15 03/06/2022 interval history: This is a 51-year-old male with aphasia, dysphagia, and right-sided deficits from previous stroke who presented to the emergency department via EMS from a local extended care facility for evaluation of shortness of breath. as patient was seen drinking from his Gtube, and became short of breath, suspect aspiration pneumonia and patient was sent to ER. Given his expressive and receptive aphasia he is unable to provide a history and thus almost all of the following is obtained via a review of his electronic medical records. patient remains clinically stable, from ER Zosyn was started and blood culture are ordered from ER. today is day 3 of antibiotics, blood culture no growth so far, unfortunately patient is unable to provide any history or review of symptom, will continue monitor and further recommendation to follow Review of Systems Review of Systems: ROS unobtainable: Yes unobtainable due to medical condition Exam Narrative: appears chronically ill Patient is comfortable, NAD HEENT: eyes are clear and none icteric LUNGS: normal respiratory effort ABD: not distended Lower extremities: no edema SKIN: nonjaundiced Neuro: grossly intact. Objective Data Vital Signs Vital Signs: Vital Signs - 24 hr 03/05/22 14:00 03/05/22 16:00 03/05/22 22:00 Temperature 97.1 F L 97.9 F Pulse Rate 67 67 61 Respiratory Rate 20 18 Blood Pressure 113/78 120/82 Pulse Oximetry 95 96 03/05/22 20:00 03/06/22 00:00 03/06/22 04:00 Temperature Pulse Rate 72 69 64 Respiratory Rate Blood Pressure Pulse Oximetry 03/06/22 05:57 03/06/22 08:00 03/06/22 12:00 Temperature 97.7 F Pulse Rate 66 59 L 65 Respiratory Rate 20 Blood Pressure 114/74 Pulse Oximetry 98 Intake/Output Intake/Output: Intake & Output 03/03/22 03/04/22 03/05/22 03/06/22 23:59 23:59 23:59 23:59 Intake Total 2150 200 150 Balance 2150 200 150 Meds/Results Medications: Active Medications Generic Name Dose Route Start Last Admin Trade Name Freq PRN Reason Stop Dose Admin Amlodipine Besylate 10 mg 03/05/22 09:00 03/06/22 09:33 Amlodipine Besylate 5 Mg Tablet FEED TUBE 10 mg DAILY AGUSTÍN Administration Apixaban 5 mg 03/05/22 09:00 03/06/22 09:34 Apixaban 5 Mg Tablet FEED TUBE 5 mg BID AGUSTÍN Administration Aspirin 81 mg 03/05/22 09:00 03/06/22 09:33 Aspirin 8
[2022-03-06] MEDS: ATORVASTATIN 40 MG TABLET 80 MG FEED TUBE (21:16)
--- NOTE | 2022-03-06 21:50 | PC.NURSE ---
Pt. attempted to get out of bed to reach for piston syringe and cup for medication administration through G tube at corner table in room. When educated on the importance of NPO status, pt. became aggressive and uncooperative with RN. Offered oral swabs and lip moisturizer for oral health, which patient attempted to eat. All cups and oral items removed from bedside and placed in bathroom and bed alarms placed on zone 2.
--- NOTE | 2022-03-06 22:33 | PC.NURSE ---
Pt. refusing to let nurse put telemetry leads back on at this time. Will attempt to replace after pt. has visibly calmed down or receive further orders if condition changes.
[2022-03-07] VITALS: PULSE 67
[2022-03-07] MEDS: AMPICILLIN SULB 1.5 GM/NS 50ML 1.5 GM/50 ML VIAL IVPB ×2 (05:02→11:01)
[2022-03-07 05:38] VITALS: BP 125/73; PULSE 76; RESP 20; TEMP 36.4; O2SAT 94
[2022-03-07 07:09] LABS: Alanine Aminotransferase 37 U/L (6-50); Albumin Level 3.5 g/dL (3.5-5.1); Alkaline Phosphatase 74 U/L (38-126); Anion Gap 11 mmol/L (8-16); Aspartate Amino Transferase 37 U/L (17-59); Bilirubin,Total 0.8 mg/dL (0.2-1.3); Blood Urea Nitrogen 18 mg/dL (9-20); Calcium 8.8 mg/dL (8.4-10.2); Carbon Dioxide 24 mmol/L (22-30); Chloride 105 mmol/L (98-107); Estimated Glomerular Filt Rate > 60; Glucose 68 mg/dL (65-110); Magnesium 1.7 mg/dL (1.6-2.3); Potassium 3.4 mmol/L (3.4-5.0); Sodium 140 mmol/L (137-145)
[2022-03-07 07:11] LABS: Hematocrit 36.6 % (42.0-52.0); Hemoglobin 12.1 g/dL (14.0-18.0); Mean Corpuscular HGB Conc 33.1 g/dl (32-36); Mean Corpuscular Hemoglobin 31.1 pg (26-34); Mean Corpuscular Volume 94.1 fl (80-100); Mean Platelet Volume 10.6 fl (7.4-10.4); Platelet Count Result 253 k/mm3 (150-375); Red Blood Count 3.89 M/mm3 (4.6-6.20); Red Cell Distribution Width 13.2 % (11.5-14.5); White Blood Count 3.7 K/mm3 (4.5-10.0)
[2022-03-07 08:00] VITALS: PULSE 54
[2022-03-07] MEDS: POTASSIUM CHLORIDE 20 MEQ PACKET (FOR LIQUID) 40 MEQ PO (09:24)
[2022-03-07] MEDS: ASPIRIN 81 MG CHEWABLE TABLET FEED TUBE (09:25)
[2022-03-07] MEDS: CHOLECALCIFEROL 1,000 UNITS TABLET 2000 UNITS FEED TUBE (09:25)
[2022-03-07] MEDS: amLODIPine BESYLATE 5 MG TABLET 10 MG FEED TUBE (09:26)
[2022-03-07] MEDS: FAMOTIDINE 20 MG TABLET FEED TUBE (09:26)
[2022-03-07] MEDS: APIXABAN 5 MG TABLET FEED TUBE (09:26)
[2022-03-07] MEDS: BACLOFEN 5 MG TABLET FEED TUBE ×2 (09:26→12:14)
--- NOTE | 2022-03-07 11:24 | PM.DS ---
DS: Admitting Diagnosis Discharge Date 03/07/2022 Admitting Diagnosis shortness of breath DS: Discharge Diagnosis Discharge Diagnosis (1) Acute respiratory failure with hypoxia: Code(s): J96.01 - Acute respiratory failure with hypoxia Status: Acute Assessment and Plan: 03/06/2022 interval history: This is a 51-year-old male with aphasia, dysphagia, and right-sided deficits from previous stroke who presented to the emergency department via EMS from a local extended care facility for evaluation of shortness of breath. as patient was seen drinking from his Gtube, and became short of breath, suspect aspiration pneumonia and patient was sent to ER. Given his expressive and receptive aphasia he is unable to provide a history and thus almost all of the following is obtained via a review of his electronic medical records. patient remains clinically stable, from ER Zosyn was started and blood culture are ordered from ER. today is day 3 of antibiotics, blood culture no growth so far, unfortunately patient is unable to provide any history or review of symptom, will continue monitor and further recommendation to follow (2) History of cerebrovascular accident: Code(s): Z86.73 - Personal history of transient ischemic attack (TIA), and cerebral infarction without residual deficits Status: Acute Assessment and Plan: patient with CVA resulting in expressive and receptive aphasia (3) Dysphagia: Code(s): R13.10 - Dysphagia, unspecified Status: Acute Assessment and Plan: status post CV resulting in dysphagia, patient has a PEG feeding DS: Summary Hospital Course Reason for hospitalization: Chief Complaint: ?shortness of breath Narrative: This is a 51-year-old male with aphasia, dysphagia, and right-sided deficits from previous stroke who presented to the emergency department via EMS from a local extended care facility for evaluation of shortness of breath. as patient was seen drinking from his Gtube, and became short of breath, suspect aspiration pneumonia and patient was sent to ER. Given his expressive and receptive aphasia he is unable to provide a history and thus almost all of the following is obtained via a review of his electronic medical records. patient remains clinically stable, from ER Zosyn was started and blood culture are ordered from ER. will continue monitor and further recommendation to follow Hospital Course: This is a 51-year-old male with aphasia, dysphagia, and right-sided deficits from previous stroke who presented to the emergency department via EMS from a local extended care facility for evaluation of shortness of breath. as patient was seen drinking from his Gtube, and became short of breath, suspect aspiration pneumonia and patient was sent to ER. Given his expressive and receptive aphasia he is unable to provide a history and thus almost all of the following is obtained via a review of his electronic medical records. patient remains clinically stable, from ER Zosyn was started and blood culture are ordered from ER. today is day 3 of antibiotics, blood culture no growth so far, ? unfortunately patient is unable to provide any history or review of symptom,? will continue monitor and further recommendation to follow patient remains clinically stable will discharge patient back to intermediate today Time Spent with Patient Time attestation: Total time spent providing and/or coordinating discharge services: Exam Narrative: appears chronically ill Patient is comfortable, NAD HEENT: eyes are clear and none icteric LUNGS: normal respiratory effort ABD: not distended Lower extremities: no edema SKIN: nonjaundiced Neuro: grossly intact. DS: Data Data Completed and Pending Labs on day of discharge: Labs from last 24 hours 03/07/22 03/07/22 06:11 06:11 WBC 3.7 L RBC 3.89 L Hgb 12.1 L Hct 36.6 L MCV 94.1 MCH 31.1 MCHC 33.1 RDW 13.2 Plt Count 2
[2022-03-07 12:35] LABS: EDCOVIDSCREEN Negative (Negative)
== END 2022-03-07 15:10 | DRG 137 ==
LOC: ANHED 05:49 → ANH3MEDSUR 06:44
PROVIDERS: Admitting Provider Internal Medicine; Emergency Provider Emergency Medicine; PCP Internal Medicine; Visit Provider Family Medicine
DX: J69.0 Pneumonitis due to inhalation of food and vomit (principal); J96.01 Acute respiratory failure with hypoxia; I69.351 Hemiplegia and hemiparesis following cerebral infarction affecting right dominant side; I69.320 Aphasia following cerebral infarction; R13.10 Dysphagia, unspecified; Z93.1 Gastrostomy status; E78.5 Hyperlipidemia, unspecified; I10 Essential (primary) hypertension; Z20.822 Contact with and (suspected) exposure to COVID-19; Z79.01 Long term (current) use of anticoagulants; Z79.82 Long term (current) use of aspirin; I69.391 Dysphagia following cerebral infarction; Z79.899 Other long term (current) drug therapy
CPT/HCPCS: 36415; 71045; 80053; 83735; 85025; 85027; 87040; 87426; 96361; 96365; 99285; A9270; C9803; G0378; G0379; J0295; J7030; J7120; U0003; U0005

== ENCOUNTER 2022-06-26 12:16 | Emergency (ER) | payer OTHER, SELFPAY ==
[2022-06-26] VITALS (25 sets, daily range): BP systolic 93–113; BP diastolic 68–80; PULSE 66–96; RESP 15–23; O2SAT 93–100
--- NOTE | ~2022-06-26 | XR_ITS ---
EXAMINATION: XR chest 1V portable DATE: 06/26/2022 12:47 INDICATION: Chest pain. Aspiration pneumonia. TECHNIQUE: frontal view of the chest was obtained. COMPARISON: Chest radiograph dated 03/06/2022 FINDINGS: New elevation the left hemidiaphragm. Opacities with some air bronchograms at the medial aspect of th e bilateral lower lung zones. No pleural effusion or pneumothorax. Skin folds project over the right upper lung zone. Heart size is normal. IMPRESSION: 1. Opacities in the bilateral lower lung zones with differential including pneumonia, atelectasis, as piration, less likely mild pulmonary edema or some combination thereof. Reviewed, dictated and finalized at location A. R COLORER IMPRESSION: 1. Opacities in the bilateral lower lung zones with differential including pneu monia, atelectasis, aspiration, less likely mild pulmonary edema or some combin ation thereof.
--- NOTE | 2022-06-26 12:33 | ECG_ITS ---
Measurements Intervals Anderson Rate: 71 P: 48 VT: 191 QRS: 58 QRSD: 93 T: 65 QT: 392 QTc: 428 Interpretive Statements SINUS RHYTHM NORMAL ECG COMPARED TO ECG 02/17/2022 10:23:23 NO SIGNIFICANT CHANGES Electronically Signed On 06-27-2022 10:02:41 HAND ROLLER by Jake Mcginnis M.D.
[2022-06-26 13:07] LABS: Basophils Percent Auto 0.1 % (0.2-1.2); Hematocrit 36.2 % (42.0-52.0); Hemoglobin 12.1 g/dL (14.0-18.0); Immature Granulocyte Absolute 0.05 K/mm3 (0.00-0.031); Immature Granulocyte Percent A 0.5 % (0-0.5); Lymphocytes Absolute Auto 1.52 K/mm3 (0.9-3.2); Lymphocytes Percent Auto 16.5 % (18.3-44.2); Mean Corpuscular HGB Conc 33.4 g/dl (32-36); Mean Corpuscular Hemoglobin 30.8 pg (26-34); Mean Corpuscular Volume 92.1 fl (80-100); Mean Platelet Volume 11.3 fl (7.4-10.4); Monocytes Absolute Auto 0.5 K/mm3 (0.1-0.6); Neutrophils Absolute Auto 7.2 K/mm3 (1.3-6.7); Neutrophils Percent Auto 77.9 % (45.5-73.1); Platelet Count Result 150 k/mm3 (150-375); Red Blood Count 3.93 M/mm3 (4.6-6.20); Red Cell Distribution Width 14.6 % (11.5-14.5); White Blood Count 9.2 K/mm3 (4.5-10.0)
[2022-06-26 13:21] LABS: INR 1.3
[2022-06-26] MEDS: SODIUM CHLORIDE 0.9% IV 1,000 ML 150 ML IV CONT (13:21)
[2022-06-26 14:12] LABS: Alanine Aminotransferase 33 U/L (6-50); Albumin Level 3.4 g/dL (3.5-5.1); Alkaline Phosphatase 77 U/L (38-126); Anion Gap 3 mmol/L (8-16); Aspartate Amino Transferase 30 U/L (17-59); Bilirubin,Total 0.8 mg/dL (0.2-1.3); Blood Urea Nitrogen 20 mg/dL (9-20); Calcium 8.2 mg/dL (8.4-10.2); Carbon Dioxide 27 mmol/L (22-30); Chloride 102 mmol/L (98-107); Estimated CRCL calculation 145 ml/min; Estimated Glomerular Filt Rate > 60; Glucose 178 mg/dL (65-110); Potassium 3.3 mmol/L (3.4-5.0); Sodium 132 mmol/L (137-145)
[2022-06-26 14:13] LABS: Lactic Acid Reflex 1.6 mmol/L (0.7-2.0)
[2022-06-26 14:24] LABS: NT Pro B Type Natriuretic Pept 928 pg/mL (19.9-100)
--- NOTE | 2022-06-26 15:59 | ED.GENADULT ---
HPI - General Adult General Chief complaint: Unspecified Stated complaint: CP WITH RAPID RESPIRATION Time Seen by Provider: 06/26/22 12:33 Source: EMS Mode of arrival: EMS Limitations: clinical condition History of Present Illness HPI narrative: 51-year-old with a history of CVA, aphasic was sent in from a long-term for chest pain. Upon arrival patient denies having any chest pain or cough or shortness of breath. Patient does understand but cannot answer the questions he nods his head. No history of nausea, vomiting or diarrhea. He has occasional cough which is nonproductive. No fever was reported by the long-term however upon arrival he is afebrile. Onset (ago): day(s) (1) Related Data Home Medications Medication Instructions Recorded Confirmed Fleet Enema 1 applic RECTAL PRN PRN 11/23/21 03/04/22 Constipation ##0 Milk of Magnesia 30 ml G-tube HS PRN Constipation 11/23/21 03/04/22 ##0 amlodipine 5 mg tablet 10 mg G-tube DAILY ##0 11/23/21 03/04/22 aspirin 81 mg chewable tablet 81 mg G-tube DAILY ##0 11/23/21 03/04/22 atorvastatin 80 mg G-tube HS ##0 11/23/21 03/04/22 baclofen 5 mg tablet 5 mg G-tube TID ##0 11/23/21 03/04/22 bisacodyl 10 mg rectal suppository 10 mg RECTAL DAILY PRN 11/23/21 03/04/22 Constipation ##0 famotidine 20 mg tablet 20 mg G-tube BID ##0 11/23/21 03/04/22 cholecalciferol (vitamin D3) 50 2,000 unit feeding tube DAILY 02/07/22 03/04/22 mcg (2,000 unit) tablet (Vitamin D3) apixaban 5 mg tablet (Eliquis) 5 mg feeding tube BID 03/04/22 03/04/22 Allergies Allergy/AdvReac Type Severity Reaction Status Date / Time No Known Allergies Allergy Verified 06/26/22 12:38 Review of Systems Constitutional: Constitutional: Reports no additional constitutional complaints Eyes: Eyes: Reports no additional eye complaints Cardiovascular: Cardiovascular: Reports as per HPI Respiratory: Respiratory: Reports as per HPI Gastrointestinal: Gastrointestinal: Reports no additional gastrointestinal complaints PMFSH Past Medical History Medical History Cerebrovascular accident With resultant aphasia, dysphagia, and right-sided hemiplegia. Chronic anemia Hyperlipidemia Hypertension Surgical History Surgical History History of gastrostomy tube placement Family History Family History Other Family history unknown Social History Social History Social History: Surrogate medical decision maker: Tisha Overton (sister) or Blake Kennedy (son). Code status: Full code. Smoking status: Unknown if ever smoked Alcohol intake: unknown Substance use: unknown Additional living arrangements comments: Resident at [facility] in [place]. Spiritual care concerns: No Exam Narrative: GENERAL: illl-appearing, well-nourished, and in no acute distress. HEAD: Normocephalic, atraumatic. EYES: PERRLA and EOMI. NECK: Supple. CHEST: Clear to auscultation. No respiratory distress. HEART: Regular rate and rhythm. No murmur heard. Normal peripheral pulses. ABDOMEN: Soft, nontender, nondistended, normal active bowel sounds. EXTREMITIES: Normal range of motion. No edema. SKIN: Warm, dry, no rash. NEURO: Alert. PSYCH: Normal mood and affect. Course Course Emergency Course: Patient was sent from long-term with chest pain however patient denied having chest pain his EKG upon arrival shows normal sinus rhythm with no acute ST-T changes. His cardiac work-up including chest x-ray is unremarkable. He remained stable we will discharge him back to the long-term. Vital Signs Vital signs: Vital Signs Pulse Rate 96 06/26/22 12:24 Respiratory Rate 23 H 06/26/22 12:24 Blood Pressure 101/73 06/26/22 12:24 Pulse Oximetry 93 06/26/22 12:24 Oxygen Delivery Room Air
[2022-06-26 16:15] LABS: Glucose Point of Care 98 mg/dl (65-105)
== END 2022-06-26 17:45 ==
PROVIDERS: Emergency Provider Family Medicine; PCP Internal Medicine
DX: R53.1 Weakness (principal); I10 Essential (primary) hypertension; E78.5 Hyperlipidemia, unspecified; D64.9 Anemia, unspecified
CPT/HCPCS: 36415; 71045; 80053; 82948; 83605; 83880; 84484; 85025; 85610; 93005; 96360; 96361; 99284; J7030

== ENCOUNTER 2022-07-23 02:40 | Emergency (ER) | payer OTHER, SELFPAY ==
[2022-07-23] VITALS (26 sets, daily range): BP systolic 101–120; BP diastolic 72–84; PULSE 67–87; RESP 14–19; TEMP 36.5; O2SAT 94–97
--- NOTE | ~2022-07-23 | XR_ITS ---
Supine and upright views of the abdomen Clinical history: G-tube insertion Findings: Bowel gas pattern is nonspecific. There is oral contrast in the gastric lumen and proximal small bowel. No abnormal extravasation of contrast identified. No evidence for obstruction or free ai r. No abnormal mass lesion or calcification is seen. Osseous structures are intact. Impression: Percutaneous gastrostomy tube is presumably in adequate location given opacification gastric lumen an d proximal small bowel. No abnormal extravasation of contrast seen. Reviewed, dictated and finalized at location M. Impression: Percutaneous gastrostomy tube is presumably in adequate location given opacific ation gastric lumen and proximal small bowel. No abnormal extravasation of cont rast seen.
--- NOTE | 2022-07-23 03:53 | ED.GENADULT ---
HPI - General Adult General Chief complaint: Unspecified Stated complaint: FEEDING TUBE PROBLEMS Time Seen by Provider: 07/23/22 02:47 History of Present Illness HPI narrative: [facility] from [facility] because they said they were unable to flush his G-tube and were not able to get any residual. Patient is nonverbal but shakes his head no if he has any complaints or pain. Related Data Home Medications Medication Instructions Recorded Confirmed Fleet Enema 1 applic RECTAL PRN PRN 11/23/21 03/04/22 Constipation ##0 Milk of Magnesia 30 ml G-tube HS PRN Constipation 11/23/21 03/04/22 ##0 amlodipine 5 mg tablet 10 mg G-tube DAILY ##0 11/23/21 03/04/22 aspirin 81 mg chewable tablet 81 mg G-tube DAILY ##0 11/23/21 03/04/22 atorvastatin 80 mg G-tube HS ##0 11/23/21 03/04/22 baclofen 5 mg tablet 5 mg G-tube TID ##0 11/23/21 03/04/22 bisacodyl 10 mg rectal suppository 10 mg RECTAL DAILY PRN 11/23/21 03/04/22 Constipation ##0 famotidine 20 mg tablet 20 mg G-tube BID ##0 11/23/21 03/04/22 cholecalciferol (vitamin D3) 50 2,000 unit feeding tube DAILY 02/07/22 03/04/22 mcg (2,000 unit) tablet (Vitamin D3) apixaban 5 mg tablet (Eliquis) 5 mg feeding tube BID 03/04/22 03/04/22 Allergies Allergy/AdvReac Type Severity Reaction Status Date / Time No Known Allergies Allergy Verified 06/26/22 12:38 [facility] Past Medical History Medical History Cerebrovascular accident With resultant aphasia, dysphagia, and right-sided hemiplegia. Chronic anemia Hyperlipidemia Hypertension Surgical History Surgical History History of gastrostomy tube placement Family History Family History Other Family history unknown Social History Social History Social History: Surrogate medical decision maker: Tisha Overton (sister) or Blake Kennedy (son). Code status: Full code. Smoking status: Unknown if ever smoked Alcohol intake: unknown Substance use: unknown Additional living arrangements comments: Resident at [facility] in [place]. Spiritual care concerns: No Exam Narrative: APPEARANCE: No apparent distress. Head: atraumatic. EYES: EOMI, NOSE: Atraumatic NECK: Trachea midline RESPIRATORY: No increased rate of breathing CARDIOVASCULAR: RRR, ABDOMINAL: Soft nontender no guarding or rebound. G-tube in place with no surrounding cellulitis. MUSCULOSKELETAl: No obvious deformities NEURO: Alert. SKIN:: Warm, dry. Normal color PSYCHIATRIC: Normal affect Course Vital Signs Vital signs: Vital Signs Temperature 97.7 F 07/23/22 02:53 Pulse Rate 68 07/23/22 02:53 Respiratory Rate 17 07/23/22 02:53 Blood Pressure 120/80 07/23/22 02:53 Pulse Oximetry 97 07/23/22 02:53 Oxygen Delivery Room Air 07/23/22 02:53 Temperature 97.7 F 07/23/22 02:53 Pulse Rate 70 07/23/22 05:46 Respiratory Rate 16 07/23/22 05:46 Blood Pressure 107/81 07/23/22 05:46 Pulse Oximetry 96 07/23/22 05:46 Oxygen Delivery Room Air 07/23/22 02:53 Procedures Feeding Tube Replacement Feeding Tube #1: Type of Tube: gastrostomy Insertion Site Prior to Procedure: clean Tube Used for Reinsertion: patient's own Verification of Placement: gastrografin injection Tube Secured by: tape/dressing Patient Tolerated Procedure: well Additional Comments: Troubleshooting of nonfunctioning G-tube. Now working appropriately. Medical Decision Making MDM Narrative Medical decision making narrative: -Presentation: 52-year-old male presenting with a malfunctioning G-tube. Per [facility] they were unable to flush the tube and have no residual. -DDX includes but is not limited to: G-tube malfunction, dislodgement -Co-morbidities c
--- NOTE | 2022-07-23 05:05 | PC.NURSE ---
flushed g-tub, flowing; notified
--- NOTE | 2022-07-23 06:14 | PC.NURSE ---
Called [facility] to request transport. Accepted
== END 2022-07-23 08:02 ==
PROVIDERS: Emergency Provider Emergency Medicine; PCP Internal Medicine
DX: K94.23 Gastrostomy malfunction (principal); I69.320 Aphasia following cerebral infarction; I69.391 Dysphagia following cerebral infarction; R13.10 Dysphagia, unspecified; I69.351 Hemiplegia and hemiparesis following cerebral infarction affecting right dominant side; I10 Essential (primary) hypertension; D64.9 Anemia, unspecified; E78.5 Hyperlipidemia, unspecified; Z79.01 Long term (current) use of anticoagulants; Z79.82 Long term (current) use of aspirin
CPT/HCPCS: 49450; 99284

== ENCOUNTER 2022-08-10 12:16 | Emergency (ER) | payer OTHER, SELFPAY ==
--- NOTE | ~2022-08-10 | XR_ITS ---
XR G tube replacement w image DATE: 08/10/2022 14:07 INDICATION: Verify placement/evaluation gastrostomy tube TECHNIQUE: Portable supine AP view on August 10, 2022 at 1403 hours COMPARISON: None FINDINGS: A gastrostomy tube with some radiopaque contrast material in the lumen overlies the body of the stomach. There is retained contrast material within the gastric lumen. No extravasated contrast material is noted. IMPRESSION: Gastrostomy tube in stomach Reviewed, dictated and finalized at [facility]. Reviewed, dictated and finalized at location [facility]. IMPRESSION: Gastrostomy tube in stomach
[2022-08-10 12:19] VITALS: BP 117/86; PULSE 63; RESP 18; TEMP 36.6; O2SAT 95
--- NOTE | 2022-08-10 12:37 | ED.GENADULT ---
HPI - General Adult General Chief complaint: Unspecified Stated complaint: g tube removed Time Seen by Provider: 08/10/22 12:24 Source: EMS Mode of arrival: EMS Limitations: no limitations History of Present Illness HPI narrative: 52 years old, senior living, accidental feeding tube dislodged. No other symptoms. Related Data Home Medications Medication Instructions Recorded Confirmed Fleet Enema 1 applic RECTAL PRN PRN 11/23/21 03/04/22 Constipation ##0 Milk of Magnesia 30 ml G-tube HS PRN Constipation 11/23/21 03/04/22 ##0 amlodipine 5 mg tablet 10 mg G-tube DAILY ##0 11/23/21 03/04/22 aspirin 81 mg chewable tablet 81 mg G-tube DAILY ##0 11/23/21 03/04/22 atorvastatin 80 mg G-tube HS ##0 11/23/21 03/04/22 baclofen 5 mg tablet 5 mg G-tube TID ##0 11/23/21 03/04/22 bisacodyl 10 mg rectal suppository 10 mg RECTAL DAILY PRN 11/23/21 03/04/22 Constipation ##0 famotidine 20 mg tablet 20 mg G-tube BID ##0 11/23/21 03/04/22 cholecalciferol (vitamin D3) 50 2,000 unit feeding tube DAILY 02/07/22 03/04/22 mcg (2,000 unit) tablet (Vitamin D3) apixaban 5 mg tablet (Eliquis) 5 mg feeding tube BID 03/04/22 03/04/22 Allergies Allergy/AdvReac Type Severity Reaction Status Date / Time No Known Allergies Allergy Verified 06/26/22 12:38 Review of Systems Review of Systems: ROS unobtainable: Yes unobtainable due to medical condition and unobtainable due to mental status PMFSH Past Medical History Medical History Cerebrovascular accident With resultant aphasia, dysphagia, and right-sided hemiplegia. Chronic anemia Hyperlipidemia Hypertension Surgical History Surgical History History of gastrostomy tube placement Family History Family History Other Family history unknown Social History Social History Social History: Surrogate medical decision maker: Tisha Overton (sister) or Blake Kennedy (son). Code status: Full code. Smoking status: Unknown if ever smoked Alcohol intake: unknown Substance use: unknown Additional living arrangements comments: Resident at [facility] in [place]. Spiritual care concerns: No Exam Narrative: General appearance: Well-developed, well-nourished, depressed Skin: Normal color Head: Normocephalic, nontraumatic Chest and respiratory: Airway patent, no respiratory distress, no accessory muscle use Heart: Regular rate/rhythm Abdomen: Soft, nontender, no organomegaly, quiet bowel sounds feeding tube stoma looks okay, no signs of infection, dry and clean. Neurologic: Alert and aphasic, cannot follow verbal commands Course Reevaluation(s) Reevaluation #1: No new changes after feeding tube placement. Date: 08/10/22 Time: 14:15 Vital Signs Vital signs: Vital Signs Temperature 36.6 C 08/10/22 12:19 Pulse Rate 63 08/10/22 12:19 Respiratory Rate 18 08/10/22 12:19 Blood Pressure 117/86 08/10/22 12:19 Pulse Oximetry 95 08/10/22 12:19 Oxygen Delivery Room Air 08/10/22 12:19 Temperature 36.6 C 08/10/22 12:19 Pulse Rate 75 08/10/22 15:12 Respiratory Rate 18 08/10/22 15:12 Blood Pressure 132/84 08/10/22 15:12 Pulse Oximetry 98 08/10/22 15:12 Oxygen Delivery Room Air 08/10/22 12:19 Procedures Feeding Tube Replacement Feeding Tube #1: Feeding Tube Placement Date: 08/10/22 Feeding Tube Placement Time: 14:18 Type of Tube: G-J Tube Insertion Site Prior to Procedure: clean Tube Used for Reinsertion
--- NOTE | 2022-08-10 14:07 | PC.NURSE ---
16F G-tube with 5ml balloon placed in by EDP.
[2022-08-10 15:12] VITALS: BP 132/84; PULSE 75; RESP 18; O2SAT 98
--- NOTE | 2022-08-10 15:54 | PC.NURSE ---
[facility] return to [facility] ETA 30min Trip #[id number]
[2022-08-10 16:43] VITALS: BP 115/80; PULSE 70; RESP 18; O2SAT 98
== END 2022-08-10 16:44 ==
PROVIDERS: Emergency Provider Emergency Medicine; PCP Internal Medicine
DX: Z43.1 Encounter for attention to gastrostomy (principal); I69.920 Aphasia following unspecified cerebrovascular disease; I69.991 Dysphagia following unspecified cerebrovascular disease; I69.951 Hemiplegia and hemiparesis following unspecified cerebrovascular disease affecting right dominant side; R13.10 Dysphagia, unspecified; D64.9 Anemia, unspecified; E78.5 Hyperlipidemia, unspecified; I10 Essential (primary) hypertension
CPT/HCPCS: 49450; 99283

== ENCOUNTER 2022-08-11 14:18 | Emergency (ER) | payer OTHER, SELFPAY ==
--- NOTE | ~2022-08-11 | XR_ITS ---
EXAM: XR G tube replacement w image DATE: 08/11/2022 15:10 HISTORY: g tube replaced . COMPARISON: Same date at 2:03 PM. FINDINGS: Bibasilar scar/atelectasis. Gastrostomy tube overlying the stomach and midline abdomen. Co ntrast fills the stomach. No extravasation. Contrast also present within the colon, from the prior co ntrasted study. Normal bowel gas pattern. No organomegaly. No abnormal abdominal calcification. Regio nal bones and soft tissues normal for age. IMPRESSION: G-tube, in good position. Reviewed, dictated and finalized at location [facility]. IMPRESSION: G-tube, in good position.
[2022-08-11 14:21] VITALS: BP 112/80; PULSE 62; RESP 18; TEMP 36.6; O2SAT 98
--- NOTE | 2022-08-11 14:58 | ED.GENADULT ---
HPI - General Adult General Chief complaint: Unspecified Stated complaint: REMOVED G-TUBE Time Seen by Provider: 08/11/22 14:45 History of Present Illness HPI narrative: 52-year-old male with prior history of CVA and is nonverbal with long-lasting right-sided weakness and is G-tube dependent presenting to the emergency department after once again having his G-tube removed. Related Data Home Medications Medication Instructions Recorded Confirmed Fleet Enema 1 applic RECTAL PRN PRN 11/23/21 03/04/22 Constipation ##0 Milk of Magnesia 30 ml G-tube HS PRN Constipation 11/23/21 03/04/22 ##0 amlodipine 5 mg tablet 10 mg G-tube DAILY ##0 11/23/21 03/04/22 aspirin 81 mg chewable tablet 81 mg G-tube DAILY ##0 11/23/21 03/04/22 atorvastatin 80 mg G-tube HS ##0 11/23/21 03/04/22 baclofen 5 mg tablet 5 mg G-tube TID ##0 11/23/21 03/04/22 bisacodyl 10 mg rectal suppository 10 mg RECTAL DAILY PRN 11/23/21 03/04/22 Constipation ##0 famotidine 20 mg tablet 20 mg G-tube BID ##0 11/23/21 03/04/22 cholecalciferol (vitamin D3) 50 2,000 unit feeding tube DAILY 02/07/22 03/04/22 mcg (2,000 unit) tablet (Vitamin D3) apixaban 5 mg tablet (Eliquis) 5 mg feeding tube BID 03/04/22 03/04/22 Allergies Allergy/AdvReac Type Severity Reaction Status Date / Time No Known Allergies Allergy Verified 08/11/22 14:28 Review of Systems Review of Systems: All systems reviewed & are unremarkable except as noted in HPI and below PMFSH Past Medical History Medical History Cerebrovascular accident With resultant aphasia, dysphagia, and right-sided hemiplegia. Chronic anemia Hyperlipidemia Hypertension Surgical History Surgical History History of gastrostomy tube placement Family History Family History Other Family history unknown Social History Social History Social History: Surrogate medical decision maker: Tisha Overton (sister) or Blake Kennedy (son). Code status: Full code. Smoking status: Unknown if ever smoked Alcohol intake: unknown Substance use: unknown Additional living arrangements comments: Resident at [facility] in [place]. Spiritual care concerns: No Exam Narrative: APPEARANCE: Well appearing, no pain, no distress, well-nourished. HEAD: normocephalic, atraumatic. EYES: PERRLA/EOMI, conjunctivae clear. NOSE: Normal no drainage RESPIRATORY: Airway patent, respirations nonlabored. Clear to auscultation bilaterally, no rales, rhonchi, wheezing. CARDIOVASCULAR: Regular rate and rhythm without murmurs rubs or gallops. ABDOMINAL: Soft, nontender, nondistended, normal bowel sounds. Arrival patient did have a Zhang catheter maintaining the patency of his ostomy MUSCULOSKELETAL: Moves all extremities. Strength/ROM intact, No edema, No calf tenderness. NEURO: Alert. At the patient's normal neuro baseline SKIN: Warm, dry. Normal Color Course Course Emergency Course: Patient's G-tube was replaced at bedside. 16 [place] G-tube was replaced and balloon was filled. Patient denied having any discomfort. X-ray confirmed that the x-ray was properly placed. Patient was updated on the results of the imaging. Patient was stable at time of discharge Vital Signs Vital signs: Vital Signs Temperature 97.9 F 08/11/22 14:21 Pulse Rate 62 08/11/22 14:21 Respiratory Rate 18 08/11/22 14:21 Blood Pressure 112/80 08/11/22 14:21 Pulse Oximetry 98 08/11/22 14:21 Oxygen Delivery Room Air 08/11/22 14:21 Temperature 97.9 F 08/11/22 14:21 Pulse Rate 62 08/11/22 14:21 Respiratory Rate 18 08/11/22 14:21 Blood Pressure 112/80 08/11/22 14:21 Pulse Oximetry 98 08/11/22 14:21 Oxygen Delivery Room Air 08/11/22 14:21 Medical Decision Making Vital Signs Vital Signs:
--- NOTE | 2022-08-11 16:52 | PC.NURSE ---
marquise attempts to call [facility] with no success.
== END 2022-08-11 19:16 ==
PROVIDERS: Emergency Provider Emergency Medicine; PCP Internal Medicine
DX: T85.528A Displacement of other gastrointestinal prosthetic devices, implants and grafts, initial encounter (principal); Y73.8 Miscellaneous gastroenterology and urology devices associated with adverse incidents, not elsewhere classified
CPT/HCPCS: 49450; 99283

== ENCOUNTER 2022-08-12 02:33 | Emergency (ER) | payer OTHER, SELFPAY ==
--- NOTE | ~2022-08-12 | XR_ITS ---
G-tube replacement TECHNIQUE: Supine abdominal radiograph taken following administration of contrast via percutaneous ga strostomy tube. COMPARISON: 08/11/2022 FINDINGS: Contrast opacifies the gastric lumen with delineation rugal folds. No abnormal extravasatio n of contrast evident. Additional contrast from prior exam is present in large bowel. No free air darvin dent. Osseous structures are intact. IMPRESSION: Percutaneous gastrostomy tube in satisfactory position. Reviewed, dictated and finalized at location M.
[2022-08-12 02:37] VITALS: BP 131/90; PULSE 73; RESP 17; O2SAT 98
[2022-08-12 02:46] VITALS: BP 133/96; PULSE 57; RESP 13; O2SAT 97
[2022-08-12 03:01] VITALS: BP 133/97; PULSE 58; RESP 14; O2SAT 95
--- NOTE | 2022-08-12 03:14 | ED.GENADULT ---
HPI - General Adult General Chief complaint: Unspecified Stated complaint: g-tube removed Time Seen by Provider: 08/12/22 02:53 History of Present Illness HPI narrative: 52-year-old male nonverbal alf patient presenting with a dislodged G-tube. No information was given from the alf. Patient is nonverbal. He shakes his head no when asked about any sort of complaint. Related Data Home Medications Medication Instructions Recorded Confirmed Fleet Enema 1 applic RECTAL PRN PRN 11/23/21 03/04/22 Constipation ##0 Milk of Magnesia 30 ml G-tube HS PRN Constipation 11/23/21 03/04/22 ##0 amlodipine 5 mg tablet 10 mg G-tube DAILY ##0 11/23/21 03/04/22 aspirin 81 mg chewable tablet 81 mg G-tube DAILY ##0 11/23/21 03/04/22 atorvastatin 80 mg G-tube HS ##0 11/23/21 03/04/22 baclofen 5 mg tablet 5 mg G-tube TID ##0 11/23/21 03/04/22 bisacodyl 10 mg rectal suppository 10 mg RECTAL DAILY PRN 11/23/21 03/04/22 Constipation ##0 famotidine 20 mg tablet 20 mg G-tube BID ##0 11/23/21 03/04/22 cholecalciferol (vitamin D3) 50 2,000 unit feeding tube DAILY 02/07/22 03/04/22 mcg (2,000 unit) tablet (Vitamin D3) apixaban 5 mg tablet (Eliquis) 5 mg feeding tube BID 03/04/22 03/04/22 Allergies Allergy/AdvReac Type Severity Reaction Status Date / Time No Known Allergies Allergy Verified 08/11/22 14:28 [facility] Past Medical History Medical History Cerebrovascular accident With resultant aphasia, dysphagia, and right-sided hemiplegia. Chronic anemia Hyperlipidemia Hypertension Surgical History Surgical History History of gastrostomy tube placement Family History Family History Other Family history unknown Social History Social History Social History: Surrogate medical decision maker: Tisha Overton (sister) or Blake Kennedy (son). Code status: Full code. Smoking status: Unknown if ever smoked Alcohol intake: unknown Substance use: unknown Additional living arrangements comments: Resident at [facility] in [place]. Spiritual care concerns: No Exam Narrative: APPEARANCE: No apparent distress. Head: atraumatic. EYES: EOMI, NOSE: Atraumatic NECK: Trachea midline RESPIRATORY: No increased rate of breathing CARDIOVASCULAR: RRR, ABDOMINAL: G-tube stoma in the center of the abdomen. Abdomen is soft nontender no guarding or rebound. No surrounding cellulitis. MUSCULOSKELETAl: No obvious deformities NEURO: Alert. SKIN:: Warm, dry. Normal color PSYCHIATRIC: Normal affect Course Vital Signs Vital signs: Vital Signs Pulse Rate 73 08/12/22 02:37 Respiratory Rate 17 08/12/22 02:37 Blood Pressure 131/90 08/12/22 02:37 Pulse Oximetry 98 08/12/22 02:37 Oxygen Delivery Room Air 08/12/22 02:37 Pulse Rate 57 L 08/12/22 02:46 Respiratory Rate 13 08/12/22 02:46 Blood Pressure 133/96 H 08/12/22 02:46 Pulse Oximetry 97 08/12/22 02:46 Oxygen Delivery Room Air 08/12/22 02:37 Medical Decision Making MDM Narrative Medical decision making narrative: Medical decision making narrative: ? -Presentation:? 52-year-old male presenting with a pulled G-tube. -DDX includes but is not limited to:? G-tube malfunction, dislodgement -Co-morbidities complicating care: CVA, dysphagia, nonverbal -Social determinants of health:? patient is disabled from CVA and lives in a nursing -External Chart Review:? alf records -Hx from independent Sources: EMS report -Discussion of Management/Consultants: none -Independent interpretation of studies: ? x-ray with gastric confirmed location. Dx tests considered but not ordered: none -Procedures: ? G-tube was replaced and is functionally appropriately. Patient was placed in abdomina
--- NOTE | 2022-08-12 04:19 | PC.NURSE ---
[facility] here
[2022-08-12 04:33] VITALS: BP 138/93; PULSE 60; RESP 16; O2SAT 94
== END 2022-08-12 04:35 ==
PROVIDERS: Emergency Provider Emergency Medicine; PCP Internal Medicine
DX: Z43.1 Encounter for attention to gastrostomy (principal); I69.391 Dysphagia following cerebral infarction; R13.10 Dysphagia, unspecified; I69.351 Hemiplegia and hemiparesis following cerebral infarction affecting right dominant side; I69.320 Aphasia following cerebral infarction; I10 Essential (primary) hypertension; E78.5 Hyperlipidemia, unspecified; D64.9 Anemia, unspecified; Z79.82 Long term (current) use of aspirin; Z79.01 Long term (current) use of anticoagulants
CPT/HCPCS: 49450; 99283